=== PATIENT | male | born 1970 | race Caucasian/White ===

== ENCOUNTER 2017-07-24 12:47 | Emergency (ER) | payer OTHER, SELFPAY ==
[2017-07-24 12:50] VITALS: BP 112/75; PULSE 66; RESP 14; TEMP 36.9; O2SAT 95; BMI 43.3
--- NOTE | 2017-07-24 12:54 | ED.ABDPAIN ---
HPI - Abdominal Pain <JACQUI Stauffer - Last Filed: 07/24/17 22:09> General Chief Complaint: Abdominal Pain Stated Complaint: ABDOMINAL/BACK PAIN Time Seen by Provider: 07/24/17 13:00 History of Present Illness HPI narrative: 47 year old male hear for complaint of left lower quadrant abdominal pain for almost two weeks. He denies any trauma to the area. He denies any fevers or chills. Positive p.o. intake. He does report that he has had constipation on and off over the last couple of weeks. No urinary symptoms. Reports that the pain radiates to his back. He denies any stressors or really resolve the pain. He reports that the pain feels deeper than just on the surface. He denies any other complaint Related Data Home Medications Medication Instructions Recorded Confirmed No Known Home Medications 07/24/17 07/24/17 Allergies Allergy/AdvReac Type Severity Reaction Status Date / Time No Known Drug Allergies Allergy Verified 07/24/17 12:52 Review of Systems <JACQUI Stauffer - Last Filed: 07/24/17 22:09> Constitutional Denies chills, Denies fever(s), Denies lethargy and Denies weakness Eyes Denies change in vision, Denies eye discharge, Denies irritation and Denies loss of vision Cardiovascular Denies chest pain, Denies irregular heart rhythm, Denies lightheadedness, Denies palpitations and Denies orthopnea Gastrointestinal Gastrointestinal: Reports abdominal pain, Reports constipation, Denies diarrhea, Denies nausea and Denies vomiting Genitourinary Denies hematuria, Denies flank pain, Denies urinary incontinence and Denies urinary urgency Musculoskeletal Denies back pain, Denies muscle weakness, Denies numbness and Denies tingling Neurologic Denies loss of vision, Denies numbness, Denies tingling and Denies weakness Endocrine Denies palpitations Exam <JACQUI Stauffer - Last Filed: 07/24/17 22:09> Const General: cooperative and well developed Nutritional Appearance: well nourished Orientation: alert, awake, oriented x3 and not confused Eyes Sclera: sclerae normal Pupils: PERRL EOM: EOM intact bilaterally Resp Effort & Inspection: normal respiratory effort, able to speak in complete sentences, no respiratory distress and no use of accessory muscles Auscultation: clear to auscultation bilaterally, no rales, no rhonchi and no wheezes Cardio Rate: regular rate Rhythm: regular rhythm Heart Sounds: no click, no gallops, no murmurs and no rubs GI Inspection: non-distended Palpation: soft, no hepatosplenomegaly, No guarding, No hernia, No mass, No pulsatile mass and tender (Tenderness left lower quadrant) Auscultation: normal bowel sounds General: No CVA tenderness Back/Spine/Pelvis Back: No CVA tenderness Cervical Spine: cervical ROM normal and No pain with cervical ROM Thoracic/Lumbar Spine: thoracic and lumbar spine normal to inspection [facility] - Abdominal Pain <JACQUI Stauffer - Last Filed: 07/24/17 22:09> [facility] Narrative Medical decision making narrative: CBC Chem panel and lipase were obtained were unremarkable. Urine dip was negative for any signs of a red blood cells or urinary tract infection. CT of the abdomen was obtained and was negative for any acute findings. No emergent causes of his pain into his back and abdomen. Signs and symptoms presents as muscle pain. Use [id number] Tylenol or Motrin as needed for any discomfort. Follow up with primary care provider. Return emergency room for any worsening symptoms. Lab Data Result diagrams: 07/24/17 13:20 07/24/17 13:20 Lab Results 07/24/17 07/24/17 Range/Units 13:20 13:20 WBC 6.0 (4.5-11.0) X10^3/uL RBC 4.81 (4.5-5.9) X10^6/uL Hgb 16.0 (13.5-17.5) g/dL Hct 44.6 (41-53) % MCV 92.7 (80-100) fL MCH 33.3 (26-34) PG MCHC 35.9 (30-36) % RDW 13.2 (11.6-14.8) % Plt Count 164 (150-400) X10^3/uL Neut % (Auto) 60.6 (50-75) % Lymph % (Auto) 25.0 (25-40) % [place]oula % (Auto) 10.0 (3-14) % Eos % (Auto) 3.8 (2-4) % Baso % (Auto) 0.6 (0-2) % Neut # (Auto) 3600 (2998-3500) /uL Sodium 142 (137-145) mmol/L Potassium 4.2 (3.4-5.1) mmol/L Chloride 104.0 (98-107) mmol/L Carbon Dioxide 26.0 (22-32) mmol/L BUN 20.0 (9-20) mg/dL Creatinine 1.10 (0.66-1.25) mg/dL Estimated GFR > 60.0 (>60) mL/min BUN/Creatinine Ratio 18.2 (6-22) Glucose 97 (70-100) mg/dL Calcium 9.3 (8.4-10.2) mg/dL Total Bilirubin 0.7 (0.2-1.3) mg/dL AST 52 (17-59) IU/L ALT 86 H (21-72) IU/L Alkaline Phosphatase 77 (38-126) U/L Total Protein 7.3 (6.3-8.2) g/dL Albumin 4.3 (3.5-5.0) g/dL Globulin 3.0 (1.7-4.1) g/dL Albumin/Globulin Ratio 1.4 (1.0-2.8) Lipase 91 (23-300) U/L Imaging Data CT scan - abdomen: Radiologist's impression: PROCEDURE: CT ABDOMEN PELVIS W CON INDICATIONS: Left lower quadrant pain for last 2 weeks TECHNIQUE: After the administration of intravenous contrast, 5 mm thick sections acquired from the diaphragm to the symphysis. 5 mm coronal and sagittal reformats were acquired. For radiation dose reduction, the following was used: automated exposure control, adjustment of mA and/or kV according to patient size. COMPARISON: None. FINDINGS: Image quality: Excellent. ABDOMEN: Lung bases: Lung bases are clear. Heart size is normal. Solid organs: Liver is diffusely hypodense consistent with hepatic steatosis. Gallbladder is surgically absent. Biliary system is non dilated. Pancreas enhances normally. Spleen is normal in size and enhancement. No adrenal nodules. Kidneys demonstrate normal size and enhancement, without hydronephrosis. Peritoneum and bowel: Bowel loops demonstrate normal wall thickness and caliber. The appendix is thin walled and gas filled. No free fluid or air. Nodes and vessels: No retroperitoneal or mesenteric adenopathy by size criteria. Aorta and inferior vena cava are normal in size. Miscellaneous: No ventral hernias. PELVIS: Genitourinary: Bladder wall thickness is normal. Miscellaneous: No inguinal hernias or adenopathy. Bones: No suspicious bony lesions. No vertebral body compression fractures. There are bilateral L5-S1 pars interarticularis defects and grade I anterolisthesis. IMPRESSION: 1. No acute intra-abdominal findings. Normal appendix. No findings to explain left lower quadrant pain. 2. L5-S1 spondylolysis and spondylolisthesis. Dictated by: Shirley Rosenberg M.D. on 07/24/2017 at 14:31 Approved by: Shirley Rosenberg M.D. on 07/24/2017 at 14:34 <Osmin Solitario DO - Last Filed: 07/25/17 08:32> Lab Data Lab Results 07/24/17 07/24/17 Range/Units 13:20 13:20 WBC 6.0 (4.5-11.0) X10^3/uL RBC 4.81 (4.5-5.9) X10^6/uL Hgb 16.0 (13.5-17.5) g/dL Hct 44.6 (41-53) % MCV 92.7 (80-100) fL MCH 33.3 (26-34) PG MCHC 35.9 (30-36) % RDW 13.2 (11.6-14.8) % Plt Count 164 (150-400) X10^3/uL Neut % (Auto) 60.6 (50-75) % Lymph % (Auto) 25.0 (25-40) % [place]oula % (Auto) 10.0 (3-14) % Eos % (Auto) 3.8 (2-4) % Baso % (Auto) 0.6 (0-2) % Neut # (Auto) 3600 (0791-1957) /uL Sodium 142 (137-145) mmol/L Potassium 4.2 (3.4-5.1) mmol/L Chloride 104.0 (98-107) mmol/L Carbon Dioxide 26.0 (22-32) mmol/L BUN 20.0 (9-20) mg/dL Creatinine 1.10 (0.66-1.25) mg/dL Estimated GFR > 60.0 (>60) mL/min BUN/Creatinine Ratio 18.2 (6-22) Glucose 97 (70-100) mg/dL Calcium 9.3 (8.4-10.2) mg/dL Total Bilirubin 0.7 (0.2-1.3) mg/dL AST 52 (17-59) IU/L ALT 86 H (21-72) IU/L Alkaline Phosphatase 77 (38-126) U/L Total Protein 7.3 (6.3-8.2) g/dL Albumin 4.3 (3.5-5.0) g/dL Globulin 3.0 (1.7-4.1) g/dL Albumin/Globulin Ratio 1.4 (1.0-2.8) Lipase 91 (23-300) U/L Course <JACQUI Stauffer - Last Filed: 07/24/17 22:09> Orders Ordered: Discontinued Medications Sodium Chloride (Normal Saline 0.9%) 1,000 mls @ 150 mls/hr IV CONT RAAD Last Infusion: 07/24/17 14:48 Dose: 0 mls/hr Admin: 07/24/17 13:32 Dose: 150 mls/hr Last Vital Signs Temp 98.5 F 07/24/17 12:50 Pulse 61 07/24/17 14:50 Resp 18 07/24/17 14:50 BP 107/65 07/24/17 14:50 Pulse Ox 96 07/24/17 14:50 <Osmin Solitario DO - Last Filed: 07/25/17 08:32> Orders Ordered: Discontinued Medications Sodium Chloride (Normal Saline 0.9%) 1,000 mls @ 150 mls/hr IV CONT RAAD Last Infusion: 07/24/17 14:48 Dose: 0 mls/hr Admin: 07/24/17 13:32 Dose: 150 mls/hr Last Vital Signs Temp 98.5 F 07/24/17 12:50 Pulse 61 07/24/17 14:50 Resp 18 07/24/17 14:50 BP 107/65 07/24/17 14:50 Pulse Ox 96 07/24/17 14:50 Discharge Plan Departure Patient Disposition: Home, Self-Care Clinical Impression: Abdominal wall pain Discharge Date/Time: 07/24/17 14:57 Interventions: ED Discharge Assessment Last Done: 07/24/17 14:56 Instructions: DI for Abdominal Muscle Strain Activity Restrictions/Additional Instructions: Laboratory results and CT were unremarkable. Signs and symptoms presents as muscle strain. Use [id number] Tylenol and Motrin as needed for any discomfort. For continued symptoms follow up with her primary care provider. For any worsening symptoms return to the emergency room. There is no evidence of an emergent or life threatening illness at this time, however follow up with your doctor in 1-2 days is recommended nonetheless to continue to rule out serious underlying causes of your symptoms. Please call the office to schedule an appointment. Please return to the Emergency Department for any worsening or persistent symptoms. Please take medications as directed. Prescriptions: No Action No Known Home Medications RF: 0 Referrals: Ge Salas MD [Primary Care Provider] - <Osmin Solitario DO - Last Filed: 07/25/17 08:32> Cosign ED Attending Jasmyneature Attestation: I was immediately available in the department for consultation. Documentation has been reviewed. I agree with assessment and plan.
--- NOTE | 2017-07-24 13:06 | DI.CT.S_ITS ---
PROCEDURE: CT ABDOMEN PELVIS W CON INDICATIONS: Left lower quadrant pain for last 2 weeks TECHNIQUE: After the administration of intravenous contrast, 5 mm thick sections acquired from the diaphragm to the symphysis. 5 mm coronal and sagittal reformats were acquired. For radiation dose reduction, the following was used: automated exposure control, adjustment of mA and/or kV according to patient size. COMPARISON: None. FINDINGS: Image quality: Excellent. ABDOMEN: Lung bases: Lung bases are clear. Heart size is normal. Solid organs: Liver is diffusely hypodense consistent with hepatic steatosis. Gallbladder is surgically absent. Biliary system is non dilated. Pancreas enhances normally. Spleen is normal in size and enhancement. No adrenal nodules. Kidneys demonstrate normal size and enhancement, without hydronephrosis. Peritoneum and bowel: Bowel loops demonstrate normal wall thickness and caliber. The appendix is thin walled and gas filled. No free fluid or air. Nodes and vessels: No retroperitoneal or mesenteric adenopathy by size criteria. Aorta and inferior vena cava are normal in size. Miscellaneous: No ventral hernias. PELVIS: Genitourinary: Bladder wall thickness is normal. Miscellaneous: No inguinal hernias or adenopathy. Bones: No suspicious bony lesions. No vertebral body compression fractures. There are bilateral L5-S1 pars interarticularis defects and grade I anterolisthesis. IMPRESSION: 1. No acute intra-abdominal findings. Normal appendix. No findings to explain left lower quadrant pain. 2. L5-S1 spondylolysis and spondylolisthesis. Dictated by: Shirley Rosenberg M.D. on 07/24/2017 at 14:31 Approved by: Shirley Rosenberg M.D. on 07/24/2017 at 14:34
[2017-07-24 13:30] LABS: Add Manual Diff / Slide Review NO; Basophils Percent Auto 0.6 % (0-2); Eosinophils Percent Auto 3.8 % (2-4); Hematocrit 44.6 % (41-53); Mean Corpuscular HGB Conc 35.9 % (30-36); Mean Corpuscular Hemoglobin 33.3 PG (26-34); Mean Corpuscular Volume 92.7 fL (80-100); Neutrophils Absolute Auto 3600 /uL (3000-5900); Neutrophils Percent Auto 60.6 % (50-75); Platelet Count 164 X10^3/uL (150-400); Red Blood Cell Count 4.81 X10^6/uL (4.5-5.9); Red Cell Distribution Width 13.2 % (11.6-14.8)
[2017-07-24] MEDS: SODIUM CHLORIDE 0.9% 1,000 ML 150 ML IV (13:32)
[2017-07-24 13:39] LABS: Alanine Aminotransferase 86 IU/L (21-72); Albumin 4.3 g/dL (3.5-5.0); Albumin Globulin Ratio 1.4 (1.0-2.8); Alkaline Phosphatase 77 U/L (38-126); Aspartate Aminotransferase 52 IU/L (17-59); BUN Creatinine Ratio 18.2 (6-22); Bilirubin Total 0.7 mg/dL (0.2-1.3); Calcium 9.3 mg/dL (8.4-10.2); Estimated Glomerular Filt Rate > 60.0 mL/min (>60); Glucose 97 mg/dL (70-100); HEMOLYSIS < 15 (0-50); Lipase 91 U/L (23-300); Potassium 4.2 mmol/L (3.4-5.1); Sodium 142 mmol/L (137-145); Total Protein 7.3 g/dL (6.3-8.2)
[2017-07-24 14:50] VITALS: BP 107/65; PULSE 61; RESP 18; O2SAT 96
== END 2017-07-24 14:57 | disposition home or self-care (01) ==
PROVIDERS: Emergency Provider Nurse Practitioner Family; Family Provider Family Medicine; PCP Family Medicine
DX: R10.9 Unspecified abdominal pain (principal)
CPT/HCPCS: 36591; 74177; 80053; 83690; 85025; 96360; 99283; 99284; Q9967

== ENCOUNTER → 2018-07-14 07:43 | Outpatient (CLI) | payer OTHER, SELFPAY ==
[2018-07-14 09:08] LABS: Add Manual Diff / Slide Review NO; Basophils Absolute Auto 0 /uL (0-100); Basophils Percent Auto 0.5 % (0-2); Eosinophils Absolute Auto 200 /uL (0-450); Eosinophils Percent Auto 3.4 % (2-4); Hematocrit 45.2 % (41-53); Hemoglobin 15.9 g/dL (13.5-17.5); Lymphocytes Absolute Auto 1800 /uL (1100-4500); Lymphocytes Percent Auto 27.6 % (25-40); Mean Corpuscular HGB Conc 35.1 % (30-36); Mean Corpuscular Volume 94.1 fL (80-100); Monocytes Absolute Auto 600 /uL (0-900); Monocytes Percent Auto 9.6 % (3-14); Neutrophils Absolute Auto 3900 /uL (1500-7000); Neutrophils Percent Auto 58.9 % (50-75); Platelet Count 186 X10^3/uL (150-400); Red Cell Distribution Width 13.3 % (11.6-14.8); White Blood Cell Count 6.6 X10^3/uL (4.5-11.0)
[2018-07-14 09:09] LABS: Prothrombin Time 11.8 SECONDS (10.1-12.7)
[2018-07-14 09:23] LABS: Alanine Aminotransferase 56 IU/L (21-72); Albumin 4.3 g/dL (3.5-5.0); Albumin Globulin Ratio 1.4 (1.0-2.8); Alkaline Phosphatase 80 U/L (38-126); Aspartate Aminotransferase 33 IU/L (17-59); BUN Creatinine Ratio 18.9 (6-22); Bilirubin Total 0.6 mg/dL (0.2-1.3); Blood Urea Nitrogen 17 mg/dL (9-20); C-Reactive Protein Quant 0.5 mg/dL (<1.0); Calcium 8.9 mg/dL (8.4-10.2); Carbon Dioxide 30 mmol/L (22-32); Chloride 103 mmol/L (98-107); Cholesterol 115 mg/dL (140-199); Estimated Glomerular Filt Rate > 60.0 mL/min (>60); Glucose 92 mg/dL (70-100); HDL Cholesterol 37 mg/dL (40-60); HEMOLYSIS < 15 (0-50); LDL Cholesterol Calculated 52 mg/dL (<100); Potassium 4.1 mmol/L (3.4-5.1); Sodium 141 mmol/L (137-145); Total Protein 7.3 g/dL (6.3-8.2); Triglycerides 130 mg/dL (35-150); Uric Acid 8.6 mg/dL (3.5-8.5)
[2018-07-14 09:29] LABS: Erythrocyte Sedimentation Rate 4 MM/HR (0-15)
[2018-07-14 10:17] LABS: TSH w/ Reflex to FT4 2.64 uIU/mL (0.47-4.68)
== END ==
PROVIDERS: Visit Provider Internal Medicine
DX: G47.33 Obstructive sleep apnea (adult) (pediatric) (principal); M10.9 Gout, unspecified; E66.01 Morbid (severe) obesity due to excess calories
CPT/HCPCS: 36415; 80053; 80061; 84443; 84550; 85025; 85610; 85651; 86140

== ENCOUNTER → 2019-01-31 15:32 | Outpatient (CLI) | payer OTHER, SELFPAY ==
[2019-01-31 16:22] LABS: Add Manual Diff / Slide Review NO; Basophils Absolute Auto 0 /uL (0-100); Basophils Percent Auto 0.6 % (0-2); Eosinophils Absolute Auto 200 /uL (0-450); Eosinophils Percent Auto 2.2 % (2-4); Hematocrit 46.3 % (41-53); Hemoglobin 16.6 g/dL (13.5-17.5); Lymphocytes Absolute Auto 2000 /uL (1100-4500); Mean Corpuscular HGB Conc 35.9 % (30-36); Mean Corpuscular Hemoglobin 33.2 PG (26-34); Mean Corpuscular Volume 92.6 fL (80-100); Monocytes Absolute Auto 800 /uL (0-900); Monocytes Percent Auto 12.2 % (3-14); Neutrophils Absolute Auto 3800 /uL (1500-7000); Platelet Count 199 X10^3/uL (150-400); White Blood Cell Count 6.9 X10^3/uL (4.5-11.0)
[2019-01-31 16:49] LABS: Alanine Aminotransferase 47 IU/L (<50); Albumin 4.8 g/dL (3.5-5.0); Albumin Globulin Ratio 1.8 (1.0-2.8); Alkaline Phosphatase 94 U/L (38-126); Aspartate Aminotransferase 36 IU/L (17-59); Bilirubin Total 0.8 mg/dL (0.2-1.3); Blood Urea Nitrogen 19 mg/dL (9-20); Calcium 10.3 mg/dL (8.4-10.2); Carbon Dioxide 31 mmol/L (22-32); Chloride 100 mmol/L (98-107); Estimated Glomerular Filt Rate > 60.0 mL/min (>60); Globulin 2.7 g/dL (1.7-4.1); Glucose 102 mg/dL (70-100); HEMOLYSIS < 15 (0-50); Potassium 4.9 mmol/L (3.4-5.1); Sodium 141 mmol/L (137-145); Total Protein 7.5 g/dL (6.3-8.2)
[2019-01-31 17:20] LABS: Prostate Specific Antigen Scrn 0.264 ng/mL (0.1-4.0)
== END ==
PROVIDERS: PCP Family Medicine; Visit Provider Internal Medicine
DX: Z13.1 Encounter for screening for diabetes mellitus (principal); Z13.6 Encounter for screening for cardiovascular disorders; Z12.5 Encounter for screening for malignant neoplasm of prostate; E66.01 Morbid (severe) obesity due to excess calories; G47.33 Obstructive sleep apnea (adult) (pediatric); M10.9 Gout, unspecified
CPT/HCPCS: 36415; 80053; 85025; G0103

== ENCOUNTER → 2019-11-12 17:02 | Outpatient (CLI) | payer OTHER, SELFPAY ==
[2019-11-12 17:27] LABS: Add Manual Diff / Slide Review NO; Basophils Absolute Auto 0 /uL (0-100); Basophils Percent Auto 0.7 % (0-2); Eosinophils Absolute Auto 200 /uL (0-450); Eosinophils Percent Auto 2.7 % (2-4); Hemoglobin 14.5 g/dL (13.5-17.5); Lymphocytes Absolute Auto 2000 /uL (1100-4500); Lymphocytes Percent Auto 32.7 % (25-40); Mean Corpuscular HGB Conc 34.6 % (30-36); Mean Corpuscular Hemoglobin 32.5 PG (26-34); Mean Corpuscular Volume 93.9 fL (80-100); Monocytes Absolute Auto 700 /uL (0-900); Monocytes Percent Auto 11.8 % (3-14); Neutrophils Absolute Auto 3200 /uL (1500-7000); Neutrophils Percent Auto 52.1 % (50-75); Platelet Count 178 X10^3/uL (150-400); Red Blood Cell Count 4.47 X10^6/uL (4.5-5.9); Red Cell Distribution Width 13.2 % (11.6-14.8)
[2019-11-12 17:47] LABS: Alanine Aminotransferase 31 IU/L (<50); Albumin 4.3 g/dL (3.5-5.0); Albumin Globulin Ratio 1.4 (1.0-2.8); Alkaline Phosphatase 76 U/L (38-126); Aspartate Aminotransferase 29 IU/L (17-59); BUN Creatinine Ratio 19.5 (6-22); Blood Urea Nitrogen 17 mg/dL (9-20); Calcium 8.8 mg/dL (8.4-10.2); Carbon Dioxide 27 mmol/L (22-32); Chloride 103 mmol/L (98-107); Estimated Glomerular Filt Rate > 60.0 mL/min (>60); Glucose 91 mg/dL (70-100); HEMOLYSIS < 15 (0-50); Potassium 4.1 mmol/L (3.4-5.1); Sodium 137 mmol/L (137-145); Total Protein 7.3 g/dL (6.3-8.2)
== END ==
PROVIDERS: PCP Internal Medicine; Referring Provider Physician Assistant; Visit Provider Physician Assistant
DX: R31.9 Hematuria, unspecified (principal)
CPT/HCPCS: 36415; 80053; 85025; 87086; G0103

== ENCOUNTER → 2019-11-14 15:14 | Outpatient (CLI) | payer OTHER, SELFPAY ==
--- NOTE | 2019-11-14 15:15 | DI.CT.S_ITS ---
PROCEDURE: CT KIDNEY URETER BLADDER (KUB) INDICATIONS: LLQ pain with blood in urine TECHNIQUE: Noncontrast 5 mm thick sections acquired from the diaphragms to the symphysis. 5 mm thick coronal and sagittal reformats were then performed. For radiation dose reduction, the following was used: automated exposure control, adjustment of mA and/or kV according to patient size. COMPARISON: [facility], CT, CT ABDOMEN PELVIS W CON, 07/24/2017, 14:04. FINDINGS: Image quality: Excellent. Lung bases: Lung bases are clear. Heart size is normal. Urinary system: Both kidneys are normal in size. There is a left-sided single renal pelvis stone measuring 5 x 7 mm, associated with slight hydronephrosis on the left. More inferiorly through the retroperitoneum no additional calculus or bladder calculus is found.. No hydronephrosis or perinephric fat stranding. Both ureters appear non-dilated throughout their expected courses. Bladder wall thickness is normal; no calcified bladder stones. Other solid organs: Liver is normal in size. Gallbladder appears previously resected. Pancreas is normal in contours. Spleen is normal in size. No adrenal nodules. Peritoneum and bowel: Unenhanced bowel loops demonstrate normal wall thickness and caliber. No free fluid or air. Nodes and vessels: No retroperitoneal or mesenteric adenopathy by size criteria. Aorta and inferior vena cava are normal in caliber. Abdominal wall: No ventral hernias. Pelvis: No free pelvic fluid. No inguinal hernias or adenopathy. Bones: No suspicious bony lesions. No vertebral body compression fractures. IMPRESSION: 5 x 7 mm left renal pelvis calculus, with mild left-sided hydronephrosis, and no additional urinary tract stone is found. Note is made of prior cholecystectomy. No suspicion of coincidental inflammation involving the bowel within the pelvis. Dictated by: Yahir Arroyo M.D. on 11/14/2019 at 16:16 Approved by: Yahir Arroyo M.D. on 11/14/2019 at 16:20
== END ==
PROVIDERS: PCP Internal Medicine; Referring Provider Physician Assistant; Visit Provider Physician Assistant
DX: R31.9 Hematuria, unspecified (principal); R10.32 Left lower quadrant pain; N13.2 Hydronephrosis with renal and ureteral calculous obstruction
CPT/HCPCS: 74176

== ENCOUNTER 2020-03-04 02:30 | Emergency (ER) | payer OTHER, SELFPAY ==
[2020-03-04 02:37] VITALS: BP 145/89; PULSE 68; RESP 16; TEMP 36.1; O2SAT 97; BMI 44.4
--- NOTE | 2020-03-04 02:42 | ED_ITS ---
HPI - Extremity Problem General Chief complaint: Extremity Injury, Lower Stated complaint: gout attack Time Seen by Provider: 03/04/20 02:32 Source: patient Mode of arrival: Ambulatory Limitations: no limitations History of Present Illness HPI Narrative: 42-year-old male nonsmoker with extensive history of complicated gout presents with a chief complaint of pain and swelling was left knee over the past few days. He states this feels quite similar to prior episodes of gout. He states the pain is worse with motion and improves with rest. He denies any recent injury. He has had no fever or chills. He routinely takes allopurinol and indomethacin. He denies missing any doses. He does state that he eats a fair amount of red meat but denies any significant alcohol or other potential triggers. MD Complaint: extremity pain Onset (ago): day(s) Pain Consistency: constant Location: left Quality: aching Relieving factors: rest Exacerbating factors: walking Associated symptoms: denies other symptoms Related Data Home Medications Medication Instructions Recorded Confirmed [employer] Dreamstation CPAP #1 ea 07/10/18 11/12/19 Previous Rx's Medication Instructions Recorded allopurinol 300 mg tablet 300 mg PO QDAY #90 tab 07/17/12 tamsulosin 0.4 mg capsule 0.4 mg PO DAILY #20 cap 11/14/19 oxycodone-acetaminophen 5 mg-325 See Rx Instructions PO Q4-6H PRN 11/15/19 mg tablet #15 tab colchicine 0.6 mg tablet 0.6 mg PO BID #3 tab 02/20/20 indomethacin 50 mg capsule 50 mg PO BID #14 cap 02/20/20 colchicine See Rx Instructions .ROUTE 03/04/20 .COMPLEX #10 tab Allergies Allergy/AdvReac Type Severity Reaction Status Date / Time No Known Drug Allergies Allergy Verified 11/12/19 17:25 Review of Systems Constitutional Constitutional: Denies chills, Denies fatigue, Denies fever(s), Denies frequent falls, Denies lethargy and Denies weakness Eyes Eyes: Denies change in vision, Denies eye discharge, Denies irritation and Denies loss of vision ENT Ears, Nose, Mouth, and Throat: Denies change in voice, Denies dizziness, Denies neck pain, Denies sore throat and Denies throat swelling Cardiovascular Cardiovascular: Denies chest pain, Denies irregular heart rhythm, Denies lightheadedness, Denies palpitations, Denies dyspnea, Denies dyspnea on exertion and Denies orthopnea Respiratory Respiratory: Denies cough, Denies dyspnea, Denies dyspnea on exertion and Denies wheezing Gastrointestinal Gastrointestinal: Denies abdominal pain, Denies change in bowel habits, Denies diarrhea, Denies nausea and Denies vomiting Musculoskeletal Musculoskeletal: Reports arthralgias, Reports joint swelling, Denies neck pain and Denies numbness Integumentary/Breasts Skin/Breast: Denies pruritus, Denies erythema, Denies rash and Denies wounds Neurologic Neurologic: Denies behavioral changes, Denies confusion, Denies dizziness, Denies frequent falls, Denies loss of vision, Denies numbness and Denies weakness Psychiatric Psychiatric: Denies anxiety, Denies behavioral changes, Denies confusion, Denies depression, Denies homicidal ideation and Denies suicidal ideation Endocrine Endocrine: Denies fatigue, Denies flushing and Denies palpitations Hematologic/Lymphatic Hematologic/Lymphatic: Denies easy bruising Allergic/Immunologic Allergic/Immunologic: Denies urticaria, Denies throat swelling and Denies wheezing Patient History Medical History Dry skin (~2014) Excessive daytime sleepiness (~2014) Gout (~2011) H/O adenomatous polyp of colon History of treatment for tuberculosis Insomnia (~2009) Kidney stone Morbid obesity with body mass index of 40.0-49.9 (Unknown) Obstructive sleep apnea of adult (~2014) PPD positive Seasonal allergies Shingles Snoring (~2009) Surgical History Anesthesia Carpal tunnel syndrome on both sides History of vasectomy Kidney stones (~2011) S/P cholecystectomy (~2004) S/P vasectomy (~2004) Status post cholecystectomy Status post colonoscopy (10/13/09) Social History marital status: details: axel Liu, lives in [place] household members: spouse lives independently: Yes caregiver/support person: No housing: house occupational status: employed current occupational exposures/hazards: Yes ([employer]) Smoking Status: Never smoker alcohol intake: never substance use type: does not use Smoking Status: Never smoker alcohol intake frequency: 0-2 drinks per day Substance Use Type: does not use Exam Narrative Exam Narrative: GEN: AOx3 and in mild distress EYES: Pupils are equal, round, and reactive to light and accommodation. Extraoccular muscles are intact bilaterally. There is no subconjunctival hemorrhage or exudate. CHEST: Lungs are clear to auscultation bilaterally and free of wheezes, rales, or rhonchi. Heart rate is regular rhythm, there are no murmurs, clicks, rubs, or gallops. There is no chest wall tenderness. ABD: Abdomen is soft and nontender. There is no guarding or rebound. Bowel sounds are normal in all 4 quadrants. There is no mass or organomegaly. EXT: Decreased range of motion secondary to pain in left knee, moderate effusion, no redness or warmth. SKIN: Warm, pink, and dry. No erythema or rash Initial Vital Signs Initial Vital Signs: Vital Signs Temperature 97.0 F L 03/04/20 02:37 Pulse Rate 68 03/04/20 02:37 Respiratory Rate 16 03/04/20 02:37 Blood Pressure 145/89 H 03/04/20 02:37 Pulse Oximetry 97 03/04/20 02:37 Course Orders Ordered: Discontinued Medications Colchicine (Colchicine 0.6 Mg Tablet) 1.2 mg PO NOW ONE Stop: 03/04/20 02:40 Last Admin: 03/04/20 02:56 Dose: 1.2 mg Documented by: YOLANDA Vital Signs Vital signs: Vital Signs - 8 hr 03/04/20 02:37 Temperature 97.0 F L Pulse Rate 68 Respiratory Rate 16 Blood Pressure 145/89 H Pulse Oximetry 97 Discharge Plan Departure Patient Disposition: Home Clinical Impression: Gout Instructions: DI for Gout Activity Restrictions/Additional Instructions: *You have been diagnosed with [acute gout flare] *What to do: * continue taking other medications as directed *Follow up with your primary care provider in 2-3 days, call for an appointment. Let them know you were seen in the Emergency Department and that we ask that you be seen in follow up *Return to ER if you should have any new, worsening or concerning symptoms Prescriptions: New colchicine 0.6 mg tablet See Rx Instructions .ROUTE .COMPLEX Qty: 10 RF: 0 No Action allopurinol 300 mg tablet 300 mg PO QDAY Qty: 90 RF: 3 tamsulosin [Flomax] 0.4 mg capsule 0.4 mg PO DAILY Qty: 20 RF: 0 oxycodone-acetaminophen 5-325 mg tablet See Rx Instructions PO Q4-6H PRN (Reason: pain) Qty: 15 RF: 0 colchicine 0.6 mg tablet 0.6 mg PO BID Qty: 3 RF: 0 indomethacin 50 mg capsule 50 mg PO BID Qty: 14 RF: 0 (DME) [employer] Dream[employer] CPAP Qty: 1 RF: 0 Referrals: [facility] [Outside] Fam Zaidi MD [Physician] - Mirza Dominguez MD [Primary Care Provider] -
[2020-03-04] MEDS: COLCHICINE 0.6 MG TABLET 1.2 MG PO (02:56)
== END 2020-03-04 03:08 | disposition home or self-care (01) ==
PROVIDERS: Emergency Provider Emergency Medicine; PCP Internal Medicine
DX: M10.9 Gout, unspecified (principal); N20.0 Calculus of kidney
CPT/HCPCS: 74018; 99281; 99283

== ENCOUNTER → 2020-03-04 16:20 | Outpatient (CLI) | payer OTHER, SELFPAY ==
--- NOTE | 2020-03-04 16:21 | DI.RAD.S_ITS ---
PROCEDURE: XR KUB INDICATIONS: Kidney stone TECHNIQUE: One view of the abdomen acquired. COMPARISON: [facility], CT, CT ABDOMEN PELVIS W CON, 07/24/2017, 14:04. [facility], CT, CT KIDNEY URETER BLADDER (KUB), 11/14/2019, 15:16. FINDINGS: Surgical changes and devices: None. Bowel: Bowel gas pattern is normal. Soft tissues: No new suspicious abdominal calcification is found, and the ovoid calculus at the central renal pelvis at the renal hilum is again noted, not significantly further enlarged, measuring approximately 7 mm in dimension with some radiographic magnification. No right-sided urinary tract stone is seen.. Visualized solid organ contours appear normal in size. Bones: No suspicious bony lesions. IMPRESSION: Stable appearing 7-8 mm calculus within the collecting renal pelvis area of the left kidney faintly visualized. A ureteral stone is not seen. Dictated by: Yahir Arroyo M.D. on 03/04/2020 at 17:03 Approved by: Yahir Arroyo M.D. on 03/04/2020 at 17:05
== END ==
PROVIDERS: PCP Internal Medicine; Referring Provider Specialist; Visit Provider Specialist
DX: N20.0 Calculus of kidney (principal)
CPT/HCPCS: 74018

== ENCOUNTER → 2020-03-10 11:36 | Outpatient (CLI) | payer OTHER, SELFPAY ==
[2020-03-10 13:15] LABS: BUN Creatinine Ratio 21.6 (6-22); Blood Urea Nitrogen 19 mg/dL (9-20); Calcium 9.9 mg/dL (8.4-10.2); Carbon Dioxide 31 mmol/L (22-32); Chloride 104 mmol/L (98-107); Estimated Glomerular Filt Rate > 60.0 mL/min (>60); Glucose 96 mg/dL (70-100); HEMOLYSIS < 15 (0-50); Potassium 4.6 mmol/L (3.4-5.1); Sodium 141 mmol/L (137-145); Uric Acid 6.3 mg/dL (3.5-8.5)
== END ==
PROVIDERS: PCP Internal Medicine; Referring Provider Internal Medicine; Visit Provider Internal Medicine
DX: Z87.39 Personal history of other diseases of the musculoskeletal system and connective tissue (principal)
CPT/HCPCS: 36415; 80048; 84550

== ENCOUNTER → 2020-03-19 16:17 | Outpatient (CLI) | payer OTHER, SELFPAY ==
[2020-03-19 17:36] LABS: COVID19 -Nasal RAPID Negative (Negative)
== END ==
PROVIDERS: PCP Internal Medicine; Visit Provider Specialist
DX: Z01.812 Encounter for preprocedural laboratory examination (principal); Z20.822 Contact with and (suspected) exposure to COVID-19
CPT/HCPCS: 87635; C9803

== ENCOUNTER 2020-03-21 06:32 | Day surgery (SDC) | payer OTHER, SELFPAY ==
[2020-03-19 11:52] VITALS: BMI 43.2
--- NOTE | 2020-03-21 | DI.RAD.S_ITS ---
PROCEDURE: XR KUB INDICATIONS: pre op TECHNIQUE: One view of the abdomen acquired. COMPARISON: [facility], CT, CT KIDNEY URETER BLADDER (KUB), 11/14/2019, 15:16. [facility], CR, XR KUB, 03/04/2020, 16:25. FINDINGS: Surgical changes and devices: Right upper quadrant surgical clips. Bowel: Bowel gas pattern is normal. Soft tissues: Previously seen 7-8 mm calcification projecting the region of left renal pelvis appears grossly unchanged although not well seen due to overlying bowel Bones: No suspicious bony lesions. IMPRESSION: Grossly unchanged appearance of calculus projecting in the left renal pelvis Dictated by: Ross Rodriguez M.D. on 03/21/2020 at 9:05 Approved by: Ross Rodriguez M.D. on 03/21/2020 at 9:07
[2020-03-21 07:07] VITALS: BP 114/72; PULSE 57; RESP 16; TEMP 35.8; O2SAT 96; BMI 43.2
--- NOTE | 2020-03-21 07:23 | PM.PREOP ---
Pre-operative Note Interval Note History & Physical reviewed/Exam performed by Physician: Yes Changes to H&P: No
[2020-03-21] MEDS: LACTATED RINGERS 1,000 ML 42 ML IV (07:25)
--- NOTE | 2020-03-21 08:13 | SUR.OPER ---
Supine on lithotripsy table, head on pillow, arms at patients side on gel pads, towel rolled and placed under patients wrist and hand bilaterally, legs uncrossed, large gel pad under ankles/heels.
--- NOTE | 2020-03-21 08:53 | P.OP_ITS ---
Operative Date/Time/Diagnoses Date of procedure: 03/21/20 Time of procedure: 08:53 Pre-op diagnosis: Obstructing 7 x 8 mm left ureteropelvic junction calculus Post-op diagnosis: same Procedure & Clinicians Procedure: Left extracorporeal shockwave lithotripsy (2042 shocks at power level 8.0) Same procedure as scheduled: Yes Indications: Obstructing 7 x 8 mm left ureteropelvic junction calculus Surgeon: Fam Zaidi Click Yes if Unassisted: Yes Anesthesia Type: General Operative Notes Findings: Patient was positioned supine was administered general anesthesia. The above-described index stone was then localized in the X, Y, and Z plane. Lithotripsy was then commenced at minimal power level for 200 shocks. A 2 minutes pause was then conducted. Lithotripsy was then resumed and the power level was gradually increased to maximum of 8.0. The calculus and its fragments were periodically really localized throughout the case. At 2042 shocks there was excellent radiographic evidence of stone comminution. The patient was then awakened, transferred to [facility], and transferred to recovery in stable condition. Closure Type: not applicable Specimen(s): none sent Estimated Blood Loss (mL): 0 Blood products transfused: none Tourniquet time (min): 0 Procedure in detail: See dictation under findings Complications: none Post-operative Condition: stable Disposition: PACU Plan for aftercare: Discharge home
[2020-03-21 08:54] VITALS: BP 106/67; PULSE 58; RESP 11; TEMP 36.5; O2SAT 94
[2020-03-21 09:00] VITALS: BP 120/69; PULSE 55; RESP 11; O2SAT 97
[2020-03-21 09:05] VITALS: BP 106/67; PULSE 50; RESP 11; O2SAT 97
[2020-03-21] MEDS: FUROSEMIDE 20 MG/2 ML VIAL IV (09:13)
[2020-03-21 09:26] VITALS: BP 94/56; PULSE 55; RESP 13; O2SAT 95
[2020-03-21 09:55] VITALS: BP 111/67; PULSE 50; RESP 16; TEMP 36.2; O2SAT 95
--- NOTE | 2020-03-21 10:01 | SUR.PHASEII ---
Pt met criteria for discharge: VSS, Denied pain or nausea, up to toilet to void x 2 (stone fragments strained/collected and sent to lab). Discharge instructions discussed, all questions answered. Transported via W/C to private vehicle.
[2020-03-31 13:46] LABS: Size 2x2; Stone Analysis Source NOT PROVIDED
[2020-03-31 13:47] LABS: Ca oxalate monohydr 20
[2020-03-31 13:48] LABS: Ca oxalate dihydrate 80
== END 2020-03-21 09:59 | disposition home or self-care (01) ==
PROVIDERS: PCP Internal Medicine; Referring Provider Internal Medicine; Visit Provider Specialist
PROC: (CPT 50590; principal; 2020-03-21 07:45)
DX: N20.1 Calculus of ureter (principal); R31.9 Hematuria, unspecified; G47.33 Obstructive sleep apnea (adult) (pediatric); E66.01 Morbid (severe) obesity due to excess calories; M10.9 Gout, unspecified; Z68.41 Body mass index [BMI] 40.0-44.9, adult; Z80.42 Family history of malignant neoplasm of prostate
CPT/HCPCS: 50590; 74018; 82365; J1100; J1940; J2250; J2405; J2704; J3010

== ENCOUNTER 2020-03-22 11:09 | Observation (INO) | payer OTHER, SELFPAY ==
[2020-03-22] VITALS (22 sets, daily range): BP systolic 92–194; BP diastolic 52–90; PULSE 49–76; RESP 7–24; TEMP 36.2–36.8; O2SAT 93–100; BMI 43.2
[2020-03-22] MEDS: HYDROMORPHONE 1 MG INJ IV ×2 (11:24→12:01)
[2020-03-22] MEDS: SODIUM CHLORIDE 0.9% 500 ML 1000 ML IV (11:24)
[2020-03-22] MEDS: ONDANSETRON 4 MG/2 ML INJ IV (11:25)
[2020-03-22 11:41] LABS: Add Manual Diff / Slide Review NO; Basophils Absolute Auto 0 /uL (0-100); Basophils Percent Auto 0.2 % (0-2); Eosinophils Absolute Auto 0 /uL (0-450); Eosinophils Percent Auto 0.1 % (2-4); Hematocrit 45.3 % (41-53); Hemoglobin 15.9 g/dL (13.5-17.5); Lymphocytes Absolute Auto 1800 /uL (1100-4500); Lymphocytes Percent Auto 10.6 % (25-40); Mean Corpuscular HGB Conc 35.1 % (30-36); Mean Corpuscular Hemoglobin 32.7 PG (26-34); Mean Corpuscular Volume 93.1 fL (80-100); Monocytes Absolute Auto 1400 /uL (0-900); Monocytes Percent Auto 8.3 % (3-14); Neutrophils Absolute Auto 13700 /uL (1500-7000); Neutrophils Percent Auto 80.8 % (50-75); Platelet Count 207 X10^3/uL (150-400); Red Blood Cell Count 4.86 X10^6/uL (4.5-5.9); Red Cell Distribution Width 12.8 % (11.6-14.8)
[2020-03-22 11:48] LABS: Alanine Aminotransferase 59 IU/L (<50); Albumin 4.5 g/dL (3.5-5.0); Albumin Globulin Ratio 1.4 (1.0-2.8); Alkaline Phosphatase 79 U/L (38-126); Amylase 46 U/L (30-110); Aspartate Aminotransferase 35 IU/L (17-59); BUN Creatinine Ratio 12.2 (6-22); Bilirubin Total 0.4 mg/dL (0.2-1.3); Blood Urea Nitrogen 22 mg/dL (9-20); Calcium 9.6 mg/dL (8.4-10.2); Carbon Dioxide 29 mmol/L (22-32); Chloride 103 mmol/L (98-107); Estimated Glomerular Filt Rate 40.2 mL/min (>60); Globulin 3.2 g/dL (1.7-4.1); Glucose 128 mg/dL (70-100); HEMOLYSIS < 15 (0-50); Lactate (Lactic Acid) 1.7 mmol/L (0.7-2.1); Lipase 59 U/L (23-300); Potassium 4.1 mmol/L (3.4-5.1); Sodium 138 mmol/L (137-145); Total Protein 7.7 g/dL (6.3-8.2)
--- NOTE | 2020-03-22 11:56 | ED.MALEGU ---
HPI - Male Genitourinary <TIFF Mosqueda - Last Filed: 03/22/20 16:04> General Chief complaint: Urogenital-Male Stated complaint: kidney pain, post procedure Time Seen by Provider: 03/22/20 11:10 Source: patient Mode of arrival: Ambulatory Limitations: no limitations History of Present Illness HPI Narrative: The patient is a 50-year-old male nonsmoker with history of lithotripsy yesterday who presents with a chief complaint of severe left-sided flank pain. He had a lithotripsy yesterday at this facility by Dr. Zaidi. He states that his pain is out of control, he last took 10 mg of oxycodone at 10:00 a.m.. He states he had low-grade fevers muscle aches and chills yesterday after the procedure. States that his pain is so bad that he is vomiting twice. He presents to the emergency department with his . Related Data Previous Rx's Medication Instructions Recorded allopurinol 300 mg tablet 300 mg PO QDAY #90 tab 07/17/12 Allergies Allergy/AdvReac Type Severity Reaction Status Date / Time No Known Drug Allergies Allergy Verified 03/22/20 11:17 Review of Systems <TIFF Mosqueda - Last Filed: 03/22/20 16:04> Review of Systems Narrative: GENERAL: Denies chills, fatigue, malaise, fever, sweats. HEENT: Denies sinus pain, ear pain, sore throat, difficulty swallowing, dizziness. RESPIRATORY: Denies dyspnea, cough, wheezing, hemoptysis, sputum. CARDIOVASCULAR: Denies chest pain, palpitations, orthopnea, edema, GASTROINTESTINAL: See HPI : See HPI MUSCULOSKELETAL: denies weakness, joint pain, or bony pain SKIN: Denies rash, skin lesions, or other NEUROLOGIC: Denies weakness, headache, numbness, change in speech, confusion, seizures, incoordination. PSYCHIATRIC: No concerning psychosocial issues. 12 point review of systems is negative except for those stated above Patient History <TIFF Mosqueda - Last Filed: 03/22/20 16:04> Medical History (Updated 03/22/20 @ 15:32 by TIFF Mosqueda) Dry skin (~2014) Excessive daytime sleepiness (~2014) Family history of prostate cancer in father Gout (~2011) H/O acute gouty arthritis H/O adenomatous polyp of colon History of treatment for tuberculosis Insomnia (~2009) Left nephrolithiasis Morbid obesity with body mass index of 40.0-49.9 (Unknown) Obstructive sleep apnea of adult (~2014) PPD positive Seasonal allergies Snoring (~2009) Tinnitus Surgical History (Updated 03/10/20 @ 11:05 by Mirza Dominguez MD) Anesthesia Carpal tunnel syndrome on both sides Kidney stones (~2011) S/P cholecystectomy (~2004) S/P vasectomy (~2004) Status post colonoscopy (10/13/09) Family History Father Cancer Social History marital status: details: axel Liu, lives in [place] household members: spouse lives independently: Yes caregiver/support person: No housing: house occupational status: employed 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 Normocephalic. No temporal or scalp tenderness. EYES: Pupils equal round and reactive. Extraocular motions intact. No scleral icterus. No injection or drainage. ENT: Nose without bleeding, purulent drainage or septal hematoma. Wearing a mask e. Airway patent. NECK: Trachea midline. No JVD or lymphadenopathy. Supple, nontender, no meningeal signs. CARDIOVASCULAR: Regular rate and rhythm RESPIRATORY: Clear to auscultation. Breath sounds equal bilaterally. No wheezes, rales, or rhonchi. No cough. No increased respiratory effort. No accessory muscle use. GASTROINTESTINAL: Abdomen soft, active bowel sounds all 4 quadrants. No hepato-splenomegaly, or palpable masses. No guarding. Diffuse pain to palpation left lower quadrant EXTREMITIES: No clubbing, cyanosis, or edema. No joint tenderness, effusion, or edema noted. BACK: Nontender without deformity or crepitance. CVA tenderness noted left side NEURO: AOx3. SKIN: No rash or erythema on visible skin Initial Vital Signs Initial Vital Signs: Vital Signs Temperature 98.2 F 03/22/20 11:17 Pulse Rate 76 03/22/20 11:17 Respiratory Rate 24 03/22/20 11:17 Blood Pressure 194/88 H 03/22/20 11:17 Pulse Oximetry 97 03/22/20 11:17 <Darleen Lopez DO - Last Filed: 03/23/20 07:24> Initial Vital Signs Initial Vital Signs: Vital Signs Temperature 98.2 F 03/22/20 11:17 Pulse Rate 76 03/22/20 11:17 Respiratory Rate 24 03/22/20 11:17 Blood Pressure 194/88 H 03/22/20 11:17 Pulse Oximetry 97 03/22/20 11:17 Scores <TIFF Mosqueda - Last Filed: 03/22/20 16:04> GCS [place] coma scale eye opening: Spontaneous Vivi coma scale verbal response: Orientated Vivi coma scale motor response: Obey commands [place] coma scale total score: 15 Course <TIFF Mosqueda - Last Filed: 03/22/20 16:04> Orders Ordered: ED Orders 03/23/20 07:00 Complete Blood Count AUTO DIFF Stat Comprehensive Metabolic Panel Stat Hydromorphone HCl (Hydromorphone 0.5 Mg Inj) 0.5 mg IV Q2H PRN PRN Reason: Pain, Severe (7-10) Sodium Chloride (Normal Saline 0.9%) 1,000 mls @ 125 mls/hr IV CONT RAAD Last Admin: 03/23/20 01:04 Dose: 125 mls/hr Documented by: Infusion: 03/23/20 01:04 Dose: 125 mls/hr Documented by: Admin: 03/22/20 17:15 Dose: 125 mls/hr Documented by: ONIEL Ondansetron HCl (Ondansetron 4 Mg/2 Ml Inj) 4 mg IV Q4HR PRN PRN Reason: Nausea And Vomiting Discontinued Medications Allopurinol (Allopurinol 300 Mg Tablet) 300 mg PO NOW ONE Stop: 03/22/20 19:29 Last Admin: 03/22/20 20:42 Dose: 300 mg Documented by: ONIEL Belladonnbal Alkaloids/Opium (Belladonna/Opium Suppositories) 1 each ID NOW ONE Stop: 03/22/20 14:11 Last Admin: 03/22/20 14:32 Dose: 1 each Documented by: MARY Hydromorphone HCl (Hydromorphone 1 Mg Inj) 1 mg IV Q15MIN PRN PRN Reason: Pain, Severe (7-10) Last Admin: 03/22/20 12:01 Dose: 1 mg Documented by: Admin: 03/22/20 11:24 Dose: 1 mg Documented by: CHRISTIAN Hydromorphone HCl (Hydromorphone 0.5 Mg Inj) 0.5 mg IV NOW ONE Stop: 03/22/20 13:53 Last Admin: 03/22/20 14:07 Dose: 0.5 mg Documented by: MARY Sodium Chloride (Normal Saline 0.9%) 500 mls @ 1,000 mls/hr IV BOLUS ONE Stop: 03/22/20 11:48 Last Infusion: 03/22/20 13:33 Dose: 0 mls/hr Documented by: Admin: 03/22/20 11:24 Dose: 1,000 mls/hr Documented by: CHRISTIAN Ondansetron HCl (Ondansetron 4 Mg/2 Ml Inj) 4 mg IV NOW ONE Stop: 03/22/20 11:20 Last Admin: 03/22/20 11:25 Dose: 4 mg Documented by: CHRISTIAN Tamsulosin HCl (Tamsulosin 0.4 Mg Capsule) 0.4 mg PO NOW ONE Stop: 03/22/20 14:43 Last Admin: 03/22/20 14:45 Dose: 0.4 mg Documented by: MARY Tramadol HCl (Tramadol 50 Mg Tablet) 100 mg PO NOW ONE Stop: 03/22/20 14:10 Last Admin: 03/22/20 14:32 Dose: 100 mg Documented by: MARY Vital Signs Vital signs: Vital Signs - 8 hr 03/22/20 11:17 03/22/20 11:31 03/22/20 12:25 Temperature 98.2 F Pulse Rate 76 65 64 Respiratory Rate 24 Blood Pressure 194/88 H Pulse Oximetry 97 96 03/22/20 12:29 03/22/20 12:30 03/22/20 13:03 Temperature Pulse Rate 67 Respiratory Rate 16 Blood Pressure 111/58 L 102/59 L Pulse Oximetry 93 94 03/22/20 13:30 03/22/20 13:52 03/22/20 14:00 Temperature Pulse Rate 62 67 67 Respiratory Rate 16 16 Blood Pressure 103/61 111/57 L Pulse Oximetry 95 97 96 03/22/20 14:30 03/22/20 14:31 03/22/20 15:00 Temperature Pulse Rate 51 L 50 L 61 Respiratory Rate 14 12 20 Blood Pressure 107/57 L Pulse Oximetry 96 97 100 03/22/20 15:01 Temperature Pulse Rate 59 L Respiratory Rate 19 Blood Pressure 113/52 L Pulse Oximetry 100 <Darleen Lopez, - Last Filed: 03/23/20 07:24> Orders Ordered: ED Orders 03/23/20 07:00 Complete Blood Count AUTO DIFF Stat Comprehensive Metabolic Panel Stat Hydromorphone HCl (Hydromorphone 0.5 Mg Inj) 0.5 mg IV Q2H PRN PRN Reason: Pain, Severe (7-10) Sodium Chloride (Normal Saline 0.9%) 1,000 mls @ 125 mls/hr IV CONT RAAD Last Admin: 03/23/20 01:04 Dose: 125 mls/hr Documented by: Infusion: 03/23/20 01:04 Dose: 125 mls/hr Documented by: Admin: 03/22/20 17:15 Dose: 125 mls/hr Documented by: ONIEL Ondansetron HCl (Ondansetron 4 Mg/2 Ml Inj) 4 mg IV Q4HR PRN PRN Reason: Nausea And Vomiting Discontinued Medications Allopurinol (Allopurinol 300 Mg Tablet) 300 mg PO NOW ONE Stop: 03/22/20 19:29 Last Admin: 03/22/20 20:42 Dose: 300 mg Documented by: ONIEL Belladonna Alkaloids/Opium (Belladonna/Opium Suppositories) 1 each ID NOW ONE Stop: 03/22/20 14:11 Last Admin: 03/22/20 14:32 Dose: 1 each Documented by: MARY Hydromorphone HCl (Hydromorphone 1 Mg Inj) 1 mg IV Q15MIN PRN PRN Reason: Pain, Severe (7-10) Last Admin: 03/22/20 12:01 Dose: 1 mg Documented by: Admin: 03/22/20 11:24 Dose: 1 mg Documented by: CHRISTIAN Hydromorphone HCl (Hydromorphone 0.5 Mg Inj) 0.5 mg IV NOW ONE Stop: 03/22/20 13:53 Last Admin: 03/22/20 14:07 Dose: 0.5 mg Documented by: MARY Sodium Chloride (Normal Saline 0.9%) 500 mls @ 1,000 mls/hr IV BOLUS ONE Stop: 03/22/20 11:48 Last Infusion: 03/22/20 13:33 Dose: 0 mls/hr Documented by: Admin: 03/22/20 11:24 Dose: 1,000 mls/hr Documented by: CHRISTIAN Ondansetron HCl (Ondansetron 4 Mg/2 Ml Inj) 4 mg IV NOW ONE Stop: 03/22/20 11:20 Last Admin: 03/22/20 11:25 Dose: 4 mg Documented by: CHRISTIAN Tamsulosin HCl (Tamsulosin 0.4 Mg Capsule) 0.4 mg PO NOW ONE Stop: 03/22/20 14:43 Last Admin: 03/22/20 14:45 Dose: 0.4 mg Documented by: MARY Tramadol HCl (Tramadol 50 Mg Tablet) 100 mg PO NOW ONE Stop: 03/22/20 14:10 Last Admin: 03/22/20 14:32 Dose: 100 mg Documented by: MARY Vital Signs Vital signs: Vital Signs - 8 hr 03/22/20 11:17 03/22/20 11:31 03/22/20 12:25 Temperature 98.2 F Pulse Rate 76 65 64 Respiratory Rate 24 Blood Pressure 194/88 H Pulse Oximetry 97 96 03/22/20 12:29 03/22/20 12:30 03/22/20 13:03 Temperature Pulse Rate 67 Respiratory Rate 16 Blood Pressure 111/58 L 102/59 L Pulse Oximetry 93 94 03/22/20 13:30 03/22/20 13:52 03/22/20 14:00 Temperature Pulse Rate 62 67 67 Respiratory Rate 16 16 Blood Pressure 103/61 111/57 L Pulse Oximetry 95 97 96 03/22/20 14:30 03/22/20 14:31 03/22/20 15:00 Temperature Pulse Rate 51 L 50 L 61 Respiratory Rate 14 12 20 Blood Pressure 107/57 L Pulse Oximetry 96 97 100 03/22/20 15:01 Temperature Pulse Rate 59 L Respiratory Rate 19 Blood Pressure 113/52 L Pulse Oximetry 100 MDM - Male Genitourinary <Darleen Faustin, OPERATOR [employer]- - Last Filed: 03/22/20 16:04> Lab Data Attestation: I reviewed the patient's lab results. Result diagrams: 03/22/20 11:20 03/22/20 11:20 Labs: Lab Results 03/22/20 03/22/20 03/22/20 Range/Units 11:20 11:20 11:20 WBC 17.0 H (4.5-11.0) X10^3/uL RBC 4.86 (4.5-5.9) X10^6/uL Hgb 15.9 (13.5-17.5) g/dL Hct 45.3 (41-53) % MCV 93.1 (80-100) fL MCH 32.7 (26-34) PG MCHC 35.1 (30-36) % RDW 12.8 (11.6-14.8) % Plt Count 207 (150-400) X10^3/uL Neut % (Auto) 80.8 H (50-75) % Lymph % (Auto) 10.6 L (25-40) % Mccreary % (Auto) 8.3 (3-14) % Eos % (Auto) 0.1 L (2-4) % Baso % (Auto) 0.2 (0-2) % Neut # (Auto) 47970 H (0495-3036) /uL Lymph # (Auto) 1800 (7592-4799) /uL Mccreary # (Auto) 1400 H (0-900) /uL Eos # (Auto) 0 (0-450) /uL Baso # (Auto) 0 (0-100) /uL Sodium 138 (137-145) mmol/L Potassium 4.1 (3.4-5.1) mmol/L Chloride 103 (98-107) mmol/L Carbon Dioxide 29 (22-32) mmol/L BUN 22 H (9-20) mg/dL Creatinine 1.81 H (0.66-1.25) mg/dL Estimated GFR 40.2 L (>60) mL/min BUN/Creatinine Ratio 12.2 (6-22) Glucose 128 H (70-100) mg/dL Lactate 1.7 (0.7-2.1) mmol/L Calcium 9.6 (8.4-10.2) mg/dL Total Bilirubin 0.4 (0.2-1.3) mg/dL AST 35 (17-59) IU/L ALT 59 H (<50) IU/L Alkaline Phosphatase 79 (38-126) U/L Total Protein 7.7 (6.3-8.2) g/dL Albumin 4.5 (3.5-5.0) g/dL Globulin 3.2 (1.7-4.1) g/dL Albumin/Globulin Ratio 1.4 (1.0-2.8) Amylase 46 (30-110) U/L Lipase 59 (23-300) U/L Urine RBC (0-5/HPF) Urine WBC (0-5/HPF) Calcium Oxalate Crystal Urine Bacteria (None) Ur Culture Indicated? SARS-CoV-2 (PCR) (Negative) 03/22/20 03/22/20 Range/Units 12:53 15:05 WBC (4.5-11.0) X10^3/uL RBC (4.5-5.9) X10^6/uL Hgb (13.5-17.5) g/dL Hct (41-53) % MCV (80-100) fL MCH (26-34) PG MCHC (30-36) % RDW (11.6-14.8) % Plt Count (150-400) X10^3/uL Neut % (Auto) (50-75) % Lymph % (Auto) (25-40) % Mccreary % (Auto) (3-14) % Eos % (Auto) (2-4) % Baso % (Auto) (0-2) % Neut # (Auto) (9755-6036) /uL Lymph # (Auto) (5413-3853) /uL Mccreary # (Auto) (0-900) /uL Eos # (Auto) (0-450) /uL Baso # (Auto) (0-100) /uL Sodium (137-145) mmol/L Potassium (3.4-5.1) mmol/L Chloride (98-107) mmol/L Carbon Dioxide (22-32) mmol/L BUN (9-20) mg/dL Creatinine (0.66-1.25) mg/dL Estimated GFR (>60) mL/min BUN/Creatinine Ratio (6-22) Glucose (70-100) mg/dL Lactate (0.7-2.1) mmol/L Calcium (8.4-10.2) mg/dL Total Bilirubin (0.2-1.3) mg/dL AST (17-59) IU/L ALT (<50) IU/L Alkaline Phosphatase (38-126) U/L Total Protein (6.3-8.2) g/dL Albumin (3.5-5.0) g/dL Globulin (1.7-4.1) g/dL Albumin/Globulin Ratio (1.0-2.8) Amylase (30-110) U/L Lipase (23-300) U/L Urine RBC 5-10/hpf H (0-5/HPF) Urine WBC 0-1/hpf (0-5/HPF) Calcium Oxalate Crystal Occasional H Urine Bacteria None seen (None) Ur Culture Indicated? Cult not indicated SARS-CoV-2 (PCR) Negative (Negative) Urine Dip Bedside Urine Glucose Negative Bedside Urine Bilirubin - Negative Bedside Urine Ketone - Negative Urine Specific [place] 1.030 Bedside Urine Occult Blood +++ Bedside Urine pH 6 Bedside Urine Protein - Negative Bedside Urine Urobilinogen - Negative Bedside Urine Nitrite - Negative Bedside Urine Leukocytes - Negative Esterase Imaging Data CT scan - abdomen/pelvis: Radiologist's Impression: [address] [place] [id number] Scan ReportSigned Patient: Jeremiah Wilson [facility]#: [id number]: 1970Acct:[id number]/Sex: 50 / MDate of Service: 03/22/20Loc: EDAccession Number: [id number] Procedure: CT kidney ureter bladder (KUB) Ordering Provider: Darleen Faustin [facility]- PROCEDURE: CT KIDNEY URETER BLADDER (KUB) INDICATIONS: flank pain, lithotripsy left side yesterday TECHNIQUE: Noncontrast 5 mm thick sections acquired from the diaphragms to the symphysis. 5 mm thick coronal and sagittal reformats were then performed. For radiation dose reduction, the following was used: automated exposure control, adjustment of mA and/or kV according to patient size. COMPARISON: [facility], CR, XR KUB, 03/21/2020, 7:29. [facility], CR, XR KUB, 03/04/2020, 16:25. [facility], CT, CT KIDNEY URETER BLADDER (KUB), 11/14/2019, 15:16. FINDINGS: Image quality: Excellent. Lung bases: Lung bases are clear. Heart size is normal. Urinary system: Both kidneys are normal in size. Suspect obstructing calculus at the left UVJ measuring 1 x 0.6 cm, (2/94), new. This may be passing through the UVJ. Mild left hydroureteronephrosis. Additional calculus at the left UPJ measuring 0.7 x 0.5 cm, (4/39), this is at high risk for ureteral obstruction. Additional nonobstructing calculus or calculi in the left renal pelvis. Suspect small peripelvic cysts. Bladder wall thickness is normal; no calcified bladder stones. Other solid organs: Liver is normal in size. Hepatic steatosis. Gallbladder is surgically absent. Pancreas is normal in contours. Spleen is normal in size. No adrenal nodules. Peritoneum and bowel: Unenhanced bowel loops demonstrate normal wall thickness and caliber. Nondilated appendix. No free fluid or air. Nodes and vessels: No retroperitoneal or mesenteric adenopathy by size criteria. Aorta and inferior vena cava are normal in caliber. Abdominal wall: No ventral hernias. Pelvis: No free pelvic fluid. No inguinal hernias or adenopathy. Bones: No suspicious bony lesions. No vertebral body compression fractures. IMPRESSION: 1. Obstructing calculus at the distal left UVJ measuring 1 x 0.6 cm. This may be passing. Mild left hydroureteronephrosis. 2. Additional calculus at the left UPJ measuring 0.7 x 0.5 cm. This is at high risk for ureteral obstruction. 3. Additional nonobstructing left renal pelvis kidney stones. 4. Hepatic steatosis. Dictated by: Jesus Salmeron M.D. on 03/22/2020 at 12:48 Approved by: Jesus Salmeron M.D. on 03/22/2020 at 12:55 [facility] Narrative Medical decision making narrative: The patient is a 50-year-old male status post lithotripsy who presents with a chief complaint of recurrent left-sided flank pain. Pain control was achieved with IV fluids, Dilaudid and Zofran. Labs are concerning with leukocytosis to 17 and slightly increased creatinine. CT KUB is concerning for ureteral stone. He is noted to have a new obstructing calculus at the left UVJ 1 x 0.6 cm. He also has his previously known calculus at the left UPJ at 0.7 x 0.5 cm. He also has some associated mild left hydroureteronephrosis. Thus I spoke with Dr. Zaidi, who did the patient's lithotripsy yesterday. He requested that I attempt different pain control including belladonna suppository and tramadol. He requested IV Tylenol, though I spoke with pharmacy and this is only allowed by Anesthesia at this institution. After these medications, the patient was still in persistent pain. He is uncomfortable going home at this point, so I spoke with Dr. Zaidi, who stated he would accept the patient for observation NPO after midnight in order to attempt to help the patient with his stones. Patient states understanding and appreciation. He is coronavirus negative at this time. <Darleen Lopez, DO - Last Filed: 03/23/20 07:24> Lab Data Labs: Lab Results 03/22/20 03/22/20 03/22/20 Range/Units 11:20 11:20 11:20 WBC 17.0 H (4.5-11.0) X10^3/uL RBC 4.86 (4.5-5.9) X10^6/uL Hgb 15.9 (13.5-17.5) g/dL Hct 45.3 (41-53) % MCV 93.1 (80-100) fL MCH 32.7 (26-34) PG MCHC 35.1 (30-36) % RDW 12.8 (11.6-14.8) % Plt Count 207 (150-400) X10^3/uL Neut % (Auto) 80.8 H (50-75) % Lymph % (Auto) 10.6 L (25-40) % Mccreary % (Auto) 8.3 (3-14) % Eos % (Auto) 0.1 L (2-4) % Baso % (Auto) 0.2 (0-2) % Neut # (Auto) 36878 H (2358-3382) /uL Lymph # (Auto) 1800 (6158-3281) /uL Mccreary # (Auto) 1400 H (0-900) /uL Eos # (Auto) 0 (0-450) /uL Baso # (Auto) 0 (0-100) /uL Sodium 138 (137-145) mmol/L Potassium 4.1 (3.4-5.1) mmol/L Chloride 103 (98-107) mmol/L Carbon Dioxide 29 (22-32) mmol/L BUN 22 H (9-20) mg/dL Creatinine 1.81 H (0.66-1.25) mg/dL Estimated GFR 40.2 L (>60) mL/min BUN/Creatinine Ratio 12.2 (6-22) Glucose 128 H (70-100) mg/dL Lactate 1.7 (0.7-2.1) mmol/L Calcium 9.6 (8.4-10.2) mg/dL Total Bilirubin 0.4 (0.2-1.3) mg/dL AST 35 (17-59) IU/L ALT 59 H (<50) IU/L Alkaline Phosphatase 79 (38-126) U/L Total Protein 7.7 (6.3-8.2) g/dL Albumin 4.5 (3.5-5.0) g/dL Globulin 3.2 (1.7-4.1) g/dL Albumin/Globulin Ratio 1.4 (1.0-2.8) Amylase 46 (30-110) U/L Lipase 59 (23-300) U/L Urine RBC (0-5/HPF) Urine WBC (0-5/HPF) Calcium Oxalate Crystal Urine Bacteria (None) Ur Culture Indicated? SARS-CoV-2 (PCR) (Negative) 03/22/20 03/22/20 Range/Units 12:53 15:05 WBC (4.5-11.0) X10^3/uL RBC (4.5-5.9) X10^6/uL Hgb (13.5-17.5) g/dL Hct (41-53) % MCV (80-100) fL MCH (26-34) PG MCHC (30-36) % RDW (11.6-14.8) % Plt Count (150-400) X10^3/uL Neut % (Auto) (50-75) % Lymph % (Auto) (25-40) % Mccreary % (Auto) (3-14) % Eos % (Auto) (2-4) % Baso % (Auto) (0-2) % Neut # (Auto) (0708-3131) /uL Lymph # (Auto) (2972-4422) /uL Mccreary # (Auto) (0-900) /uL Eos # (Auto) (0-450) /uL Baso # (Auto) (0-100) /uL Sodium (137-145) mmol/L Potassium (3.4-5.1) mmol/L Chloride (98-107) mmol/L Carbon Dioxide (22-32) mmol/L BUN (9-20) mg/dL Creatinine (0.66-1.25) mg/dL Estimated GFR (>60) mL/min BUN/Creatinine Ratio (6-22) Glucose (70-100) mg/dL Lactate (0.7-2.1) mmol/L Calcium (8.4-10.2) mg/dL Total Bilirubin (0.2-1.3) mg/dL AST (17-59) IU/L ALT (<50) IU/L Alkaline Phosphatase (38-126) U/L Total Protein (6.3-8.2) g/dL Albumin (3.5-5.0) g/dL Globulin (1.7-4.1) g/dL Albumin/Globulin Ratio (1.0-2.8) Amylase (30-110) U/L Lipase (23-300) U/L Urine RBC 5-10/hpf H (0-5/HPF) Urine WBC 0-1/hpf (0-5/HPF) Calcium Oxalate Crystal Occasional H Urine Bacteria None seen (None) Ur Culture Indicated? Cult not indicated SARS-CoV-2 (PCR) Negative (Negative) Urine Dip Bedside Urine Glucose Negative Bedside Urine Bilirubin - Negative Bedside Urine Ketone - Negative Urine Specific [place] 1.030 Bedside Urine Occult Blood +++ Bedside Urine pH 6 Bedside Urine Protein - Negative Bedside Urine Urobilinogen - Negative Bedside Urine Nitrite - Negative Bedside Urine Leukocytes - Negative Esterase Discharge Plan Departure Patient Disposition: Admitted as Observation Clinical Impression: Left ureteral calculus Admit Date/Time: 03/22/20 15:42 Admit Provider: Fam Zaidi <Darleen Lopez, - Last Filed: 03/23/20 07:24> Cosign ED Attending Cosignature Attestation: I was immediately available in the department for consultation. Documentation has been reviewed. Case was discussed, labs and imaging reviewed. Dr. Zaidi asked if we can treat patient's pain more aggressively or unable to control patient's pain and he has been admitted with plan for lithotripsy on Tuesday when the device available
--- NOTE | 2020-03-22 12:05 | DI.CT.S_ITS ---
PROCEDURE: CT KIDNEY URETER BLADDER (KUB) INDICATIONS: flank pain, lithotripsy left side yesterday TECHNIQUE: Noncontrast 5 mm thick sections acquired from the diaphragms to the symphysis. 5 mm thick coronal and sagittal reformats were then performed. For radiation dose reduction, the following was used: automated exposure control, adjustment of mA and/or kV according to patient size. COMPARISON: [facility], CR, XR KUB, 03/21/2020, 7:29. [facility], CR, XR KUB, 03/04/2020, 16:25. [facility], CT, CT KIDNEY URETER BLADDER (KUB), 11/14/2019, 15:16. FINDINGS: Image quality: Excellent. Lung bases: Lung bases are clear. Heart size is normal. Urinary system: Both kidneys are normal in size. Suspect obstructing calculus at the left UVJ measuring 1 x 0.6 cm, (2/94), new. This may be passing through the UVJ. Mild left hydroureteronephrosis. Additional calculus at the left UPJ measuring 0.7 x 0.5 cm, (4/39), this is at high risk for ureteral obstruction. Additional nonobstructing calculus or calculi in the left renal pelvis. Suspect small peripelvic cysts. Bladder wall thickness is normal; no calcified bladder stones. Other solid organs: Liver is normal in size. Hepatic steatosis. Gallbladder is surgically absent. Pancreas is normal in contours. Spleen is normal in size. No adrenal nodules. Peritoneum and bowel: Unenhanced bowel loops demonstrate normal wall thickness and caliber. Nondilated appendix. No free fluid or air. Nodes and vessels: No retroperitoneal or mesenteric adenopathy by size criteria. Aorta and inferior vena cava are normal in caliber. Abdominal wall: No ventral hernias. Pelvis: No free pelvic fluid. No inguinal hernias or adenopathy. Bones: No suspicious bony lesions. No vertebral body compression fractures. IMPRESSION: 1. Obstructing calculus at the distal left UVJ measuring 1 x 0.6 cm. This may be passing. Mild left hydroureteronephrosis. 2. Additional calculus at the left UPJ measuring 0.7 x 0.5 cm. This is at high risk for ureteral obstruction. 3. Additional nonobstructing left renal pelvis kidney stones. 4. Hepatic steatosis. Dictated by: Jesus Salmeron M.D. on 03/22/2020 at 12:48 Approved by: Jesus Salmeron M.D. on 03/22/2020 at 12:55
[2020-03-22 13:08] LABS: Bacteria Urine None Seen
[2020-03-22 13:35] LABS: RBC Urine 5-10/HPF (0-5/HPF); WBC Urine 0-1/HPF (0-5/HPF)
[2020-03-22 13:36] LABS: Calcium Oxalate Crystals Urine Occasional; Culture Indicated Urine Cult Not Indicated
[2020-03-22] MEDS: HYDROMORPHONE 0.5 MG INJ IV (14:07)
[2020-03-22] MEDS: TRAMADOL 50 MG TABLET 100 MG PO (14:32)
[2020-03-22] MEDS: BELLADONNA/OPIUM SUPPOSITORIES 1 EACH PR (14:32)
[2020-03-22] MEDS: TAMSULOSIN 0.4 MG CAPSULE PO (14:45)
[2020-03-22 15:32] LABS: COVID19 -Nasal RAPID Negative (Negative)
[2020-03-22] MEDS: SODIUM CHLORIDE 0.9% 1,000 ML 125 ML IV (17:15)
[2020-03-22] MEDS: allopurinoL 300 MG TABLET PO (20:42)
[2020-03-23] VITALS (8 sets, daily range): BP systolic 102–153; BP diastolic 53–81; PULSE 59–73; RESP 18–20; TEMP 36.3–36.9; O2SAT 94–98
[2020-03-23] MEDS: SODIUM CHLORIDE 0.9% 1,000 ML 125 ML IV ×2 (01:04→09:24)
[2020-03-23 08:29] LABS: Add Manual Diff / Slide Review NO; Basophils Absolute Auto 0 /uL (0-100); Basophils Percent Auto 0.3 % (0-2); Eosinophils Absolute Auto 100 /uL (0-450); Eosinophils Percent Auto 1.5 % (2-4); Hematocrit 39.4 % (41-53); Hemoglobin 13.7 g/dL (13.5-17.5); Lymphocytes Absolute Auto 2200 /uL (1100-4500); Lymphocytes Percent Auto 28.7 % (25-40); Mean Corpuscular HGB Conc 34.6 % (30-36); Mean Corpuscular Hemoglobin 32.9 PG (26-34); Mean Corpuscular Volume 95.1 fL (80-100); Monocytes Absolute Auto 800 /uL (0-900); Monocytes Percent Auto 10.3 % (3-14); Neutrophils Absolute Auto 4600 /uL (1500-7000); Neutrophils Percent Auto 59.2 % (50-75); Platelet Count 155 X10^3/uL (150-400); Red Blood Cell Count 4.15 X10^6/uL (4.5-5.9); Red Cell Distribution Width 13.2 % (11.6-14.8); White Blood Cell Count 7.7 X10^3/uL (4.5-11.0)
[2020-03-23 08:42] LABS: Alanine Aminotransferase 41 IU/L (<50); Albumin 3.6 g/dL (3.5-5.0); Albumin Globulin Ratio 1.4 (1.0-2.8); Alkaline Phosphatase 63 U/L (38-126); Aspartate Aminotransferase 26 IU/L (17-59); BUN Creatinine Ratio 17.8 (6-22); Bilirubin Total 0.4 mg/dL (0.2-1.3); Blood Urea Nitrogen 18 mg/dL (9-20); Calcium 8.6 mg/dL (8.4-10.2); Carbon Dioxide 32 mmol/L (22-32); Chloride 107 mmol/L (98-107); Estimated Glomerular Filt Rate > 60.0 mL/min (>60); Globulin 2.5 g/dL (1.7-4.1); Glucose 92 mg/dL (70-100); HEMOLYSIS < 15 (0-50); Potassium 4.5 mmol/L (3.4-5.1); Sodium 140 mmol/L (137-145); Total Protein 6.1 g/dL (6.3-8.2)
--- NOTE | 2020-03-23 10:18 | PC.NURSE ---
Day shift: Pt resting in bed w/ no c/o pain or discomfort. Makes needs known proper. Denies any pain or nausea. IV fluids infusing per MAR. Pt has voided approx 500 mls of clear guido/yellow urine (mildly concentrated in appearance) with no blood or clots. Tolerating SCD's and encouraged to perform foot waves. Call light in reach. Pt independent in room. Will continue to monitor.
--- NOTE | 2020-03-23 11:56 | PM.HP.1 ---
History of Present Illness History of Present Illness Date Patient Seen: 03/23/20 Time Patient Seen: 09:30 Date of Onset of Symptoms: 03/23/20 Chief complaint: kidney pain, post procedure Narrative: The patient is a 50-year-old white male with a history of uric acid nephrolithiasis presenting to the [facility] ED in the afternoon of 03/23/2020 with complaint of severe and unremitting left flank and abdominal pain. He is status post otherwise uncomplicated left extracorporeal shockwave lithotripsy on the morning of 03/22/2020, for intermittently symptomatic left ureteropelvic junction calculus. CT KUB 03/23/2020, revealed evidence of treatment related fragmentation and likely very distal, impaction of fines and fragments within the left intramural ureter (steinstrasse). Additionally, there is a possible intact remaining fragments and the same the left UPJ measuring up to 7 mm. There also some small layering fragments line dependently in the left inferior collecting system. He is admitted for pain control. Since admission his pain has been minimal. He has voided without difficulty at least 3 times without evidence of further fragment passage. Patient History Medical History (Updated 03/22/20 @ 15:32 by Darleen Faustin [facility]-) Dry skin (~2014) Excessive daytime sleepiness (~2014) Family history of prostate cancer in father Gout (~2011) H/O acute gouty arthritis H/O adenomatous polyp of colon History of treatment for tuberculosis Insomnia (~2009) Left nephrolithiasis Morbid obesity with body mass index of 40.0-49.9 (Unknown) Obstructive sleep apnea of adult (~2014) PPD positive Seasonal allergies Snoring (~2009) Tinnitus Surgical History (Updated 03/10/20 @ 11:05 by Mirza Dominguez MD) Anesthesia Carpal tunnel syndrome on both sides Kidney stones (~2011) S/P cholecystectomy (~2004) S/P vasectomy (~2004) Status post colonoscopy (10/13/09) Family & Social History Family History Father Cancer Social History: household members spouse Prior Living Arrangements House lives independently Yes caregiver/support person No Safety & Behavioral: Feels Safe in Current Yes Environment Been Physically Hurt or No Threatened By a Person Suicidal Ideation Description None Suicide Plan Description No Plan Tobacco & Substance use: Smoking Status Never smoker alcohol intake never alcohol intake frequency 0-2 drinks per day Substance Use Type does not use Meds Home Medications and Allergies Home Medications Medication Instructions Recorded Confirmed Type allopurinol 300 mg tablet 300 mg PO QDAY #90 tab 07/17/12 03/22/20 Rx Allergies Allergy/AdvReac Type Severity Reaction Status Date / Time No Known Drug Allergies Allergy Verified 03/22/20 11:17 Review of Systems Review of Systems ROS: Yes All systems reviewed with the patient and are negative except as otherwise documented Exam Vital Signs (past 8 hours): - 03/23/20 04:48 03/23/20 07:25 03/23/20 07:54 Temperature 97.4 F L 97.4 F L Pulse Rate 59 L 63 73 Respiratory Rate 18 18 Blood Pressure 103/53 L 126/59 L Pulse Oximetry 98 97 95 Oxygen Delivery Method Room Air Oxygen Flow Rate 0 Narrative Exam Narrative: This is a well-developed, moderately over nourished middle-aged white male sitting upright in bed in no distress. Head/neck-sclera clear and pupils are equal and round. Chest-clear, equal, and unlabored expansion bilaterally. Heart-regular rhythm in regular rate. No extra sounds. Abdomen-moderately obese and nontender. No rebound or guarding. Objective Labs Result Diagrams: 03/23/20 07:55 03/23/20 07:55 Labs: Laboratory Results - last 24 hr 03/22/20 03/22/20 03/23/20 12:53 15:05 07:55 WBC 7.7 D RBC 4.15 L Hgb 13.7 Hct 39.4 L MCV 95.1 MCH 32.9 MCHC 34.6 RDW 13.2 Plt Count 155 Neut % (Auto) 59.2 D Lymph % (Auto) 28.7 [place] % (Auto) 10.3 Eos % (Auto) 1.5 L Baso % (Auto) 0.3 Neut # (Auto) 4600 Lymph # (Auto) 2200 [place] # (Auto) 800 Eos # (Auto) 100 Baso # (Auto) 0 Sodium Potassium Chloride Carbon Dioxide BUN Creatinine Estimated GFR BUN/Creatinine Ratio Glucose Calcium Total Bilirubin AST ALT Alkaline Phosphatase Total Protein Albumin Globulin Albumin/Globulin Ratio Urine RBC 5-10/hpf H Urine WBC 0-1/hpf Calcium Oxalate Crystal Occasional H Urine Bacteria None seen Ur Culture Indicated? Cult not indicated SARS-CoV-2 (PCR) Negative 03/23/20 07:55 WBC RBC Hgb Hct MCV MCH MCHC RDW Plt Count Neut % (Auto) Lymph % (Auto) [place] % (Auto) Eos % (Auto) Baso % (Auto) Neut # (Auto) Lymph # (Auto) [place] # (Auto) Eos # (Auto) Baso # (Auto) Sodium 140 Potassium 4.5 Chloride 107 Carbon Dioxide 32 BUN 18 Creatinine 1.01 Estimated GFR > 60.0 BUN/Creatinine Ratio 17.8 Glucose 92 Calcium 8.6 Total Bilirubin 0.4 AST 26 ALT 41 Alkaline Phosphatase 63 Total Protein 6.1 L Albumin 3.6 Globulin 2.5 Albumin/Globulin Ratio 1.4 Urine RBC Urine WBC Calcium Oxalate Crystal Urine Bacteria Ur Culture Indicated? SARS-CoV-2 (PCR) Assessment & Plan Assessment & Plan narrative: Assessment: 1. Obstructing left distal ureteral fragments status post left ESWL. 2. Intractable left renal colic. 3. Residual intact left UPJ fragment versus residual disrupted left UPJ fragment. Reviewed findings and discussed impression and options. Utilized line diagrams in the patient's room for illustration and at of occasion of the film record. Explained that because he has had failure to progress with expectant measures, that is failure to pass any fragments, that in her ventral options are indicated. I explained these at length in detail. Explained the indications and rationale for same. Explained the common side effects, possible complications, perioperative limitations and expectations, and reasonable expectations of outcomes and recovery for the below plan. Plan: 1. Schedule/ CYSTOSCOPY/ LEFT URETEROSCOPIC LASER LITHOTRIPSY/LEFT URETERAL STENT PLACEMENT/POSSIBLE LEFT URETERAL MEATOTOMY.
[2020-03-23] MEDS: TAMSULOSIN 0.4 MG CAPSULE PO (12:23)
--- NOTE | 2020-03-23 12:31 | CM.DANOTE ---
DCP assessment: EMR reviewed: Patient is a 50 yr old male who was admitted for kidney pain- patients PCP is Dr. Dominguez. CM/Rn met with patient at the bedside and explained role. patient was alert and oriented x3 and stated his pain has been mostly controlled since being here. Patient currently lives at home with his and is Independent with all ADLs and drives at baseline. Patient has been scheduled for Cystoscopy of Lt ureter with poss stent placement later today or first thing Tuesday morning. I: [place] and self pay Plan: D/C home with when medically stable. No identified D/c planning needs noted at this time. Cm department will follow to assist with any new D/C planning needs that may arise. Marisol Peña RN Discharge Planning/Care Management CM Discharge Assessment Start: 03/23/20 12:28 Freq: Status: Active Protocol: Document 03/23/20 12:29 HS (Rec: 03/23/20 12:31 HS [id number]) Discharge Planning Assessment Assigned Vulnerability Researcher Marisol Peña RN DPOA/Assigned Designee Name Trinidad Wilson () Contact Information [phone] Advance Directives? No Advance Directives on File No History Provided By Patient,Medical Record Has Patient been admitted in last 30 No days? Prior Living Arrangements House Household Members spouse Type of transporation used prior to Drives own vehicle admit Independent with ADL's Yes Is patient alert and oriented? Yes Caregiver for Another No Barriers to Discharge No Discharge Plan Home Transportation Arrangement patients will transport home POV when medically stable Referrals Initiated None needed Whiteboard Updated in Patient Room with Yes name and ext. # of Vulnerability Researcher Review Status In Process Next Review Type Continued Stay Review
--- NOTE | 2020-03-23 13:01 | PC.NURSE ---
Day shift: Per Dr Zaidi Pt to NPO at 0300 tomorrow. Reg diet unitl then and ok to pause IV fluids infusing. IV fluids to be no longer paused when Pt return to NPO status tomorrow. Pt is aware of this as well. Pt's procedure is planned for tomorrow afternoon. Pt encouraged to ambulate in halls as tolerated. Denies any pain or nausea at this time. Urine strainer in BR. Per MD, strain all urine and send any stones to lab. Will continue with plan of care.
--- NOTE | 2020-03-23 14:54 | PC.NURSE ---
Day shift: Pt ambulating often in halls (approx 4 trips around the unit) this afternoon. Tolerating well. No nausea and no pain. Good urine output with not stones strained this shift. Makes needs known proper.
[2020-03-23] MEDS: COLCHICINE 0.6 MG TABLET PO ×2 (17:08→18:18)
[2020-03-23 17:31] LABS: Uric Acid 5.3 mg/dL (3.5-8.5)
[2020-03-23] MEDS: allopurinoL 300 MG TABLET PO (20:18)
[2020-03-24] VITALS (12 sets, daily range): BP systolic 114–141; BP diastolic 61–84; PULSE 56–110; RESP 12–89; TEMP 36.1–37.4; O2SAT 21–98; BMI 43.2
--- NOTE | 2020-03-24 | DI.RAD.S_ITS ---
PROCEDURE: XR ABDOMEN 1V INDICATIONS: STENT PLACEMENT TECHNIQUE: One view of the abdomen acquired. COMPARISON: [facility], CT, CT KIDNEY URETER BLADDER (KUB), 03/22/2020, 12:36. FINDINGS: Surgical changes and devices: Limited evaluation of the left abdomen in the area of the left kidney documenting placement of a left-sided ureteral stent with its upper aspect visualized, in the expected position of the left renal collecting system.. Bowel: Bowel gas pattern is normal. Soft tissues: No suspicious abdominal calcifications. Visualized solid organ contours appear normal in size. Bones: No suspicious bony lesions. IMPRESSION: Normal positioning of a left ureteral stent had its upper aspect. Dictated by: Yahir Arroyo M.D. on 03/25/2020 at 10:04 Approved by: Yahir Arroyo M.D. on 03/25/2020 at 10:05
[2020-03-24] MEDS: SODIUM CHLORIDE 0.9% 1,000 ML 125 ML IV (08:02)
--- NOTE | 2020-03-24 09:38 | PC.NURSE ---
Day shift: Pt sitting in chair and working on computer. Denies any pain or nausea. When urinating he denies any pain or passing of any stones. Has been ambulating in room. Tolerating NPO status and is aware that procedure is planned for after 1500 today. Makes needs know. Steady on feet. Will continue to monitor and continue w/ plan of care.
--- NOTE | 2020-03-24 12:38 | DIET.PN ---
Dietary Progress Note Assessment: 50y M admitted for kidney pain after lithotripsy. RD consult requested by charge nurse for low purine MNT. 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 Pt reports not being a medication dino so doesn't regularly f/u c PCP and gets most care from [facility] on acute basis. However, this px is debilitating so pt has been taking allopurinol daily for past 9w and a dose of colchicine this week (with uric acid level 5.3 WNL) but feels like he is in a flare right now. Pt reports his toe and knee joint pain tend to get worse with increased sugar consumption which is not high purine. Pt does not drink etoh and feels he stays hydrated c good water consumption. Pt started using [employer] meal kits 6mo ago to improve diet quality. Pt consumes meat, shrimp, beans on regular basis. Usual Day: B: coffee c cambodian muffin L: street taco D: [employer] Fresh meal kit Labs: Uric Acid 5.3 WNL Interventions: 1. Provided pt Low Purine MNT, encouraged pt to log food journal for a few weeks to relate food intake and joint sx to find correlation. Monitoring/Evaluations: Pt requests outpatient nutrition visit. RD will request from PCP Angelica.
--- NOTE | 2020-03-24 13:52 | PC.NURSE ---
Day shift: Urine has been strained after each void today and produced no stones or evidence of any stones. Will continue to monitor this per MD instructions. Pt also had a shower today at approx 1200. After shower he declined to be hooked back up to the IV fluids. He stated I feel plenty hydrated. Will ask him again in an hour if IV fluids can be started. Denies any pain, chest pain or nausea at this time. Pt also stated that he is starting to feel hungry. amkes needs known proper. Independent in room.
--- NOTE | 2020-03-24 14:45 | PC.NURSE ---
Day shift: Pt wants to not be hooked up to IV fluids at this time.
--- NOTE | 2020-03-24 19:11 | PC.NURSE ---
PATIENT TAKEN TO SURGERY
[2020-03-24] MEDS: allopurinoL 300 MG TABLET PO (19:38)
[2020-03-24] MEDS: LACTATED RINGERS 1,000 ML 100 ML IV ×2 (19:40→22:18)
--- NOTE | 2020-03-24 20:21 | PM.PREOP ---
Pre-operative Note Interval Note History & Physical reviewed/Exam performed by Physician: Yes Changes to H&P: No
[2020-03-24] MEDS: CEFAZOLIN VIAL 3 GM in SODIUM CHLORIDE 0.9% 100 ML 200 ML IV (21:44)
--- NOTE | 2020-03-24 22:13 | SUR.OPER ---
Lithotomy on padded OR bed, head on pillow, arms secured on padded arm boards at <90 degrees abduction. Legs secured in padded yellow fins stirrups.
[2020-03-24] MEDS: IOPAMIDOL 15 ML VIAL INJ (22:19)
[2020-03-24] MEDS: BELLADONNA/OPIUM SUPPOSITORIES 1 EACH PR (22:37)
--- NOTE | 2020-03-24 22:43 | P.OP_ITS ---
Operative Date/Time/Diagnoses Date of procedure: 03/24/20 Time of procedure: 22:43 Pre-op diagnosis: 1. 7 mm left ureteral pelvic junction calculus fragments 2. Left distal ureteral obstructing calculi (steinstrasse). 3. Status post left extracorporeal shockwave lithotripsy 03/21/2020 Post-op diagnosis: same Procedure & Clinicians Procedure: 1. Cystoscopy and left ureteroscopic laser lithotripsy 2. Cystoscopy and left ureteral stent placement (6 Stateless by 22-32 cm multi- length). 3. Left distal ureteral calculi removal Same procedure as scheduled: Yes Indications: 1. 7 mm left ureteropelvic junction calculus fragment. 2. Left distal ureteral structure in due to multiple calculus fragments. 3. Status post left ESWL 03/21/2020 Surgeon: Fam Zaidi Click Yes if Unassisted: Yes Anesthesia Type: General Operative Notes Findings: 1. Urethra-normal caliber without annular stricture or lesion. 2. External sphincter-intact and coapted. 3. Prostate-3.5-4 cm length with mild lateral lobe hyperplasia. 4. Bladder-trace trabeculation. Normal right ureteral orifice and left ureteral orifice position. The left ureteral orifice had [id number] surrounding erythema. 5. Left ureter-fine granules of pummace and sand were disrupted from the impacted position left distal ureter. Left ureteropelvic junction calculus was fragmented into fine pieces with the laser. Closure Type: not applicable Specimen(s): none sent Applied: other (#6F x 22-32 cm multi-length stent.) Estimated Blood Loss (mL): 0 Blood products transfused: none Tourniquet time (min): 0 Procedure in detail: Patient was positioned supine was administered general anesthesia. He was then repositioned semi lithotomy and the lower abdomen, genitalia, and genitalia were prepped and draped in sterile fashion. The 22 Stateless panendoscope was then passed lower urinary tract with findings as described above. A 0.35 hybrid guidewire was then advanced in left ureteral orifice and advanced proximally under direct and fluoroscopic guidance. The panendoscope was then backloaded off the thyroid guidewire and a dual lumen ureteral access sheath was then advanced over this wire under fluoroscopic guidance. Through the accessory port a 2nd hybrid guidewire was advanced a, again under fluoroscopic guidance. Ureteral access sheath was backloaded off both wires. One wire was secured to the for draped. Stay 1 the flexible year for scope was advanced into the lower urinary tract in the left collecting system contents. The access wire was then backloaded out of the ureteral scope and contrast was utilized to delineate the intrarenal collecting system. Painstaking evaluation of each calyceal space was undertaken under direct and fluoroscopic guidance with assistance of the contrast. A collection of fragments was then identified and the lower pole, mildly dilated system. A 273 micron laser fiber was then selected. All operating room personnel and patient were fitted with laser safety eyewear. Laser lithotripsy was then undertaken a break down all the residual material and fine particles. The flexible ureteral scope was then removed. The panendoscope was then front loaded on the hybrid guidewire. Over this a 6 Stateless by 22-32 cm multi-length stent was advanced and positioned in the left collecting system satisfactorily. A RETRIEVAL LINE WAS LEFT ATTACHED. The bladder was then drained completely and all instrumentation was removed a final time. The patient was then repositioned supine, awakened, and transferred to a [place] for transport to the recovery room. Complications: none Post-operative Condition: stable Disposition: PACU Plan for aftercare: Discharge home tonight or early tomorrow morning attending patient preference and course in recovery.
--- NOTE | 2020-03-24 23:46 | SUR.PHASEI ---
Bedside report given to ABIGAIL Pacheco. Pt was in stable condition upon transfer.
[2020-03-24] MEDS: HYDROMORPHONE 2 MG TABLET PO (23:51)
[2020-03-24] MEDS: COLCHICINE 0.6 MG TABLET 1.2 MG PO (23:51)
[2020-03-25 00:10] VITALS: BP 153/97; PULSE 74; RESP 18; TEMP 36.7
[2020-03-25] MEDS: COLCHICINE 0.6 MG TABLET PO (01:07)
[2020-03-25] MEDS: polyethylene glycoL 3350 17 GM POWD.PACK PO (01:07)
[2020-03-25] MEDS: DOCUSATE 100 MG CAPSULE PO (01:07)
[2020-03-25 01:13] VITALS: BP 144/101; PULSE 105; RESP 16; TEMP 36.4; O2SAT 94
--- NOTE | 2020-03-25 01:44 | PC.NURSE ---
0100- Patient states he is more comfortable. Describes a bloated feeling in the abdomen and states he has not had a bowel movement since last Tuesday. Bowel care medications ordered per Dr. Zaidi. Patient states he is having a gout flare as well at this time medicated per orders. Will monitor.
[2020-03-25 02:36] VITALS: BP 152/91; PULSE 87
[2020-03-25 05:23] VITALS: BP 140/74; PULSE 51; RESP 16; TEMP 36.7; O2SAT 93
--- NOTE | 2020-03-25 07:01 | PC.NURSE ---
0700- Patient discharge instruction given. Patient questions answered and IV removed. Stable at time of discharge.
--- NOTE | 2020-03-25 07:28 | PC.NURSE ---
Day shift: Pt left unit at approx 0730. Paperwork signed and all questions answered. Pt able to ambulate to car driven by his spouse. Accompanied by JOVANA Wray per protocol. Has all personal belongings. Has MD scripts.
--- NOTE | 2020-03-28 09:26 | P.DS_ITS ---
History of Present Illness History of Present Illness Chief complaint: kidney pain, post procedure Narrative: The patient is a 50-year-old white male with a history of uric acid nephrolithiasis presenting to the [facility] ED in the afternoon of 03/23/2020 with complaint of severe and unremitting left flank and abdominal pain. He is status post otherwise uncomplicated left extracorporeal shockwave lithotripsy on the morning of 03/22/2020, for intermittently symptomatic left ureteropelvic junction calculus. CT KUB 03/23/2020, revealed evidence of treatment related fragmentation and likely very distal, impaction of fines and fragments within the left intramural ureter (steinstrasse). Additionally, there is a possible intact remaining fragments and the same the left UPJ measuring up to 7 mm. There also some small layering fragments line dependently in the left inferior collecting system. He is admitted for pain control. Since admission his pain has been minimal. He has voided without difficulty at least 3 times without evidence of further fragment passage. Discharge Providers Provider Date of admission: 03/22/20 15:42 Discharge Date: 03/25/20 Primary care physician: Mirza Dominguez MD Consults: 03/24/20 19:28 Consult to Respiratory Therapy Evaluate & Treat Comment: Physician Instructions: Evaluate and treat Discharge provider: Fam Zaidi MD Exam Vital Signs (past 8 hours): Oxygen Delivery Method Room Air Oxygen Flow Rate 0 Objective Labs Result Diagrams: 03/23/20 07:55 03/23/20 07:55 [facility] Medical History Dry skin (~2014) Excessive daytime sleepiness (~2014) Family history of prostate cancer in father Gout (~2011) H/O acute gouty arthritis H/O adenomatous polyp of colon History of treatment for tuberculosis Insomnia (~2009) Left nephrolithiasis Morbid obesity with body mass index of 40.0-49.9 (Unknown) Obstructive sleep apnea of adult (~2014) PPD positive Seasonal allergies Snoring (~2009) Tinnitus Surgical History Anesthesia Carpal tunnel syndrome on both sides Kidney stones (~2011) S/P cholecystectomy (~2004) S/P vasectomy (~2004) Status post colonoscopy (10/13/09) Family History Father Cancer Social History marital status: details: axel Liu, lives in [place] household members: spouse lives independently: Yes caregiver/support person: No housing: house occupational status: 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) Smoking Status: Never smoker alcohol intake: never substance use type: does not use Discharge Plan Discharge Plan Patient Disposition: Home Provider Discharge Comment: Please contact Urology Clinic in 1-2 days to schedule postop follow-up visit Discharge orders & Medications Prescriptions: Continued allopurinol 300 mg tablet 300 mg PO QDAY Qty: 90 RF: 3 No Action multivitamin Tablet 1 tab PO DAILY RF: 0 indomethacin 25 mg capsule 25 mg PO BID RF: 0 colchicine 0.6 mg capsule 0.6 mg PO DAILY RF: 0 Follow up/Referrals: Mirza Dominguez MD [Primary Care Provider] - Diet/Activity/Treatments Diet: Diet as Tolerated Activity: Ad maylin beginning 03/25/2020 Skin/Wound/Dressing Care Report to your healthcare provider any signs of infection, such as:: chills, fever and increased pain Visit Report/Discharge Packet Instructions: DI for Cystoscopy, DI for Prescription Opioid Use, DI for Laser Lithotripsy Stand Alone Forms: Surgery Discharge Discharge Data Primary Care Provider: Mirza Dominguez Attending Provider: Fam Zaidi
== END 2020-03-25 07:29 | disposition home or self-care (01) ==
LOC: ED 15:32 → AC 15:43
PROVIDERS: Admitting Provider Specialist; Emergency Provider Nurse Practitioner Family; PCP Internal Medicine; Referring Provider Nurse Practitioner Family; Visit Provider Specialist
PROC: (CPT 52356; principal; 2020-03-24 19:30)
DX: N20.1 Calculus of ureter (principal); R10.9 Unspecified abdominal pain; Z87.442 Personal history of urinary calculi; G47.33 Obstructive sleep apnea (adult) (pediatric); E66.01 Morbid (severe) obesity due to excess calories; Z20.822 Contact with and (suspected) exposure to COVID-19
CPT/HCPCS: 52356; 36415; 51798; 74018; 74176; 76000; 80053; 81003; 81015; 82150; 83605; 83690; 84550; 85025; 87635; 94762; 96361; 96365; 96375; 96376; 99284; C9803; G0378; J0690; J1100; J1170; J2405; J2704; J3010

== ENCOUNTER → 2020-04-14 11:29 | Outpatient (CLI) | payer OTHER, SELFPAY ==
[2020-03-26 09:37] VITALS: BMI 43.2
[2020-04-14 12:32] LABS: COVID19 -Nasal RAPID Negative (Negative)
== END ==
PROVIDERS: PCP Internal Medicine; Visit Provider Specialist
DX: Z20.822 Contact with and (suspected) exposure to COVID-19 (principal)
CPT/HCPCS: 87635; C9803

== ENCOUNTER 2020-04-15 06:45 | Day surgery (SDC) | payer OTHER, SELFPAY ==
[2020-03-26 09:37] VITALS: BMI 43.2
[2020-04-15 07:12] VITALS: BP 118/77; PULSE 60; RESP 16; TEMP 36.1; O2SAT 96; BMI 41.1
[2020-04-15] MEDS: LACTATED RINGERS 1,000 ML 200 ML IV (07:23)
--- NOTE | 2020-04-15 07:37 | PM.PREOP ---
Pre-operative Note COVID-19 COVID-19 status: Negative Result date/Date tested (Pos, Neg/Pending): 04/14/20 Interval Note History & Physical reviewed/Exam performed by Physician: Yes Changes to H&P: No ASA Class (for procedural sedation): I
[2020-04-15] MEDS: MIDAZOLAM 5 MG/5 ML VIAL IV (08:14)
[2020-04-15] MEDS: fentaNYL 250 MCG/5 ML INJ IV (08:14)
[2020-04-15 08:24] VITALS: BP 124/69; PULSE 66; RESP 12; TEMP 36.8; O2SAT 98
--- NOTE | 2020-04-15 08:28 | PM.OP.ENDO ---
Operative Date/Time/Diagnoses Date of procedure: 04/15/20 Time of procedure: 08:28 Pre-op diagnosis: Rectal bleeding Post-op diagnosis: same (Internal hemorrhoids near the anal verge) Procedure & Clinicians Study performed: Colonoscopy with anoscopy and single column hemorrhoid banding Same procedure as scheduled: Yes Indications: Evaluate Rectal bleeding Surgeon: González Valenzuela Procedure Notes SCOAP/Timeout: Performed Procedure in detail: The patient was placed in the left lateral decubitus position and underwent IV sedation directed by the surgeon consisting of fentanyl and Versed. Digital exam was remarkable for slightly lax sphincter. I could not feel is prostate well.. The scope was inserted and advanced through the rectum into the sigmoid, descending, transverse, and ascending colon. Pressure was applied and we made our way into the cecum.. The cecum was reached identified by the ileocecal valve and the appendiceal opening. The ileocecal valve was successfully cannulated. The terminal ileum was normal in appearance. The scope was gradually brought out. No Polyps were found. The scope ultimately was retroflexed in the rectum. The appearance was notable for hemorrhoids near the anal verge without ulceration.. The scope was removed and the patient tolerated the procedure well. The prep was excellent. Anoscope was inserted and is circular exam was performed. Patient had hemorrhoidal columns in the expected locations but I attempted to band 1 of them and it seemed that the hemorrhoid was actually right at the area near the anal verge and very disc difficult to grasp and not mobile enough to pull down well through the banding device. Therefore I did not attempt to band and the other hemorrhoids. Scope withdrawal time: 11-1/2 minutes Sedation minutes: 24 Specimen(s): none sent Complications: none Impression: Normal exam except for small internal hemorrhoids Post-procedure Recommendations: Colonscopy in 10 years Follow up: as needed Disposition: PACU
[2020-04-15 08:29] VITALS: BP 114/74; PULSE 65; RESP 12; O2SAT 92
[2020-04-15 08:35] VITALS: BP 105/72; PULSE 55; RESP 12; O2SAT 94
[2020-04-15 08:39] VITALS: BP 110/68; PULSE 55; RESP 12; O2SAT 94
[2020-04-15 08:46] VITALS: BP 106/73; PULSE 57; RESP 12; TEMP 36.9; O2SAT 94
== END 2020-04-15 08:58 | disposition home or self-care (01) ==
PROVIDERS: PCP Internal Medicine; Referring Provider Internal Medicine; Visit Provider Specialist
PROC: 0DJD8ZZ Inspection of Lower Intestinal Tract, Via Natural or Artificial Opening Endoscopic (ICD-10-PCS; CPT 45378; principal; 2020-04-15 07:45)
DX: K62.5 Hemorrhage of anus and rectum (principal); K64.8 Other hemorrhoids
CPT/HCPCS: 45378; 99152; 99153; J2250; J3010

== ENCOUNTER → 2020-11-21 13:17 | Outpatient (CLI) | payer OTHER, SELFPAY ==
[2020-05-07 16:18] VITALS: BMI 43.2
--- NOTE | 2020-11-21 14:02 | DI.RAD.S_ITS ---
PROCEDURE: XR KUB INDICATIONS: L flank pain h/o kidney stone TECHNIQUE: One view of the abdomen acquired. COMPARISON: [facility], CT, CT KIDNEY URETER BLADDER (KUB), 03/22/2020, 12:36. [facility], CR, XR ABDOMEN 1V, 03/24/2020, 22:46. [facility], CR, XR KUB, 03/21/2020, 7:29. FINDINGS: Surgical changes and devices: Right upper quadrant surgical clips. Bowel: Bowel gas pattern is normal. Soft tissues: Possible calcification projects at the level of L3 in the left abdomen. This finding technically nonspecific. Bones: No suspicious bony lesions. IMPRESSION: Poorly defined possible calcification projecting the left abdomen as above raising possibility of urolithiasis ever technically nonspecific. Further assessment with CT KUB could be performed as clinically warranted. Dictated by: Ross Rodriguez M.D. on 11/21/2020 at 15:09 Approved by: Ross Rodriguez M.D. on 11/21/2020 at 15:17
[2020-11-21 14:08] LABS: COVID19 -Nasal RAPID Negative (Negative)
[2020-11-21 14:16] LABS: Add Manual Diff / Slide Review NO; Basophils Absolute Auto 100 /uL (0-100); Basophils Percent Auto 0.9 % (0-2); Eosinophils Absolute Auto 200 /uL (0-450); Eosinophils Percent Auto 2.8 % (2-4); Hemoglobin 16.2 g/dL (13.5-17.5); Lymphocytes Absolute Auto 1900 /uL (1100-4500); Lymphocytes Percent Auto 31.5 % (25-40); Mean Corpuscular HGB Conc 35.2 % (30-36); Mean Corpuscular Hemoglobin 33.6 PG (26-34); Mean Corpuscular Volume 95.3 fL (80-100); Monocytes Absolute Auto 800 /uL (0-900); Monocytes Percent Auto 13.1 % (3-14); Neutrophils Absolute Auto 3100 /uL (1500-7000); Neutrophils Percent Auto 51.7 % (50-75); Platelet Count 184 X10^3/uL (150-400); Red Blood Cell Count 4.83 X10^6/uL (4.5-5.9)
[2020-11-21 14:39] LABS: Alanine Aminotransferase 66 IU/L (<50); Albumin 4.8 g/dL (3.5-5.0); Albumin Globulin Ratio 1.7 (1.0-2.8); Alkaline Phosphatase 80 U/L (38-126); Aspartate Aminotransferase 47 IU/L (17-59); BUN Creatinine Ratio 16.7 (6-22); Bilirubin Total 0.7 mg/dL (0.2-1.3); Blood Urea Nitrogen 16 mg/dL (9-20); Calcium 9.6 mg/dL (8.4-10.2); Carbon Dioxide 30 mmol/L (22-32); Chloride 103 mmol/L (98-107); Estimated Glomerular Filt Rate > 60.0 mL/min (>60); Globulin 2.8 g/dL (1.7-4.1); Glucose 103 mg/dL (70-100); HEMOLYSIS < 15 (0-50); Potassium 4.6 mmol/L (3.4-5.1); Sodium 138 mmol/L (137-145); Total Protein 7.6 g/dL (6.3-8.2)
== END ==
PROVIDERS: PCP Internal Medicine; Referring Provider Nurse Practitioner; Visit Provider Nurse Practitioner
DX: Z20.822 Contact with and (suspected) exposure to COVID-19 (principal); R10.9 Unspecified abdominal pain; N20.0 Calculus of kidney
CPT/HCPCS: 36415; 74018; 80053; 85025; 87086; 87635

== ENCOUNTER → 2020-11-24 13:10 | Outpatient (CLI) | payer OTHER, SELFPAY ==
[2020-05-07 16:18] VITALS: BMI 43.2
--- NOTE | 2020-11-24 13:16 | DI.CT.S_ITS ---
PROCEDURE: CT KIDNEY URETER BLADDER (KUB) INDICATIONS: LEFT FLANK PAIN TECHNIQUE: Axial sections were acquired from the lung bases to the pubic symphysis. Coronal and sagittal reformats were performed. For radiation dose reduction, the following was used: automated exposure control, adjustment of mA and/or kV according to patient size. COMPARISON: [facility], CT, CT KIDNEY URETER BLADDER (KUB), 03/22/2020, 12:36. FINDINGS: Image quality: Excellent. Lung bases: Unremarkable. Heart: No significant findings. URINARY: Right Kidney: No stones or hydronephrosis. Right Ureter: No hydroureter. Left Kidney: 1.2 x 0.5 cm calcification in the left renal pelvis and mild peripelvic inflammation. This may also be two closely apposed stones. No other intrarenal calculi. No left hydronephrosis. There is slight prominence of the renal pelvis. Left Ureter: No hydroureter, ureteral calcifications, or periureteric inflammation Bladder: Decompressed. No calculi. Normal size prostate gland. ABDOMEN: Liver: Moderate hepatic steatosis. No masses. Gallbladder: Surgically absent. Biliary ducts: Nondilated. Pancreas: Unremarkable. Spleen: Unremarkable. Adrenal Glands: No nodules. Stomach and Bowel: Stomach, small bowel loops, and colon are unremarkable. Normal appendix. Peritoneum: No abnormal intraperitoneal fluid. No free air. Ventral Wall: No hernia. Abdominal Nodes: No enlarged retroperitoneal or mesenteric lymph nodes. Vessels: Aorta and inferior vena cava are normal in size. PELVIS: Pelvic Organs: Unremarkable. Pelvic Nodes: Unremarkable. Miscellaneous: No inguinal hernias are seen. Bones: Bilateral L5 pars defects with grade 1 anterolisthesis and severe disc height loss. IMPRESSION: 1. Calcification in the left renal pelvis with surrounding inflammation, likely cause of hematuria. No evidence of obstructive uropathy currently. 2. Moderate hepatic steatosis. 3. L5 spondylolisthesis. Dictated by: Jasmine San M.D. on 11/24/2020 at 15:15 Approved by: Jasmine San M.D. on 11/24/2020 at 15:22
== END ==
PROVIDERS: PCP Internal Medicine; Referring Provider Nurse Practitioner; Visit Provider Nurse Practitioner
DX: R10.9 Unspecified abdominal pain (principal); N28.89 Other specified disorders of kidney and ureter; K76.0 Fatty (change of) liver, not elsewhere classified; M43.16 Spondylolisthesis, lumbar region; Z90.49 Acquired absence of other specified parts of digestive tract
CPT/HCPCS: 74176

== ENCOUNTER → 2020-11-28 08:13 | Outpatient (CLI) | payer OTHER, SELFPAY ==
[2020-05-07 16:18] VITALS: BMI 43.2
[2020-11-28 09:46] LABS: COVID19 -Nasal RAPID Negative (Negative)
== END ==
PROVIDERS: PCP Internal Medicine; Visit Provider Specialist
DX: Z20.822 Contact with and (suspected) exposure to COVID-19 (principal)
CPT/HCPCS: 87635; C9803

== ENCOUNTER 2020-12-01 07:26 | Day surgery (SDC) | payer OTHER, SELFPAY ==
[2020-05-07 16:18] VITALS: BMI 43.2
[2020-11-27 10:44] VITALS: BMI 45.0
[2020-12-01] VITALS (17 sets, daily range): BP systolic 108–139; BP diastolic 58–97; PULSE 48–94; RESP 12–16; TEMP 36.1–36.9; O2SAT 92–99; BMI 45.0
--- NOTE | 2020-12-01 | DI.RAD.S_ITS ---
PROCEDURE: XR ABDOMEN 1V COMPARISON: [facility], CR, XR ABDOMEN 1V, 03/24/2020, 22:46. [facility], CT, CT KIDNEY URETER BLADDER (KUB), 11/24/2020, 13:18. INDICATIONS: surgery FINDINGS: Intraoperative fluoro image demonstrate partial visualization of what is labeled a left ureterovesicular stent. It is coiled overlying the general region of the renal pelvis/proximal ureter IMPRESSION: Intraoperative image as above. Dictated by: Drea Winn M.D. on 12/01/2020 at 11:25 Approved by: Drea Winn M.D. on 12/01/2020 at 11:26
--- NOTE | 2020-12-01 08:42 | PM.PREOP ---
Pre-operative Note Interval Note History & Physical reviewed/Exam performed by Physician: Yes Changes to H&P: No
[2020-12-01] MEDS: LACTATED RINGERS 1,000 ML 42 ML IV (08:47)
[2020-12-01] MEDS: CEFAZOLIN 3 GM IN 0.9 % NACL 100 ML IV (09:20)
--- NOTE | 2020-12-01 09:46 | SUR.OPER ---
Lithotomy on padded OR bed, head on pillow, arms secured on padded arm boards at <90 degrees abduction. Legs secured in padded yellow fins stirrups.
[2020-12-01] MEDS: IOPAMIDOL 15 ML VIAL INJ (09:50)
--- NOTE | 2020-12-01 10:42 | P.OP_ITS ---
Operative Date/Time/Diagnoses Date of procedure: 12/01/20 Time of procedure: 10:42 Pre-op diagnosis: 1. Obstructing 5 x 13 mm left ureteropelvic junction calculus. Post-op diagnosis: same Procedure & Clinicians Procedure: 1. Cystoscopy/left ureteroscopic intrarenal laser lithotripsy. 2. Cystoscopy/placement left ureteral stent (6 [place] by 22-32 cm multi length). Same procedure as scheduled: Yes Indications: 1. Obstructing 5 x 13 mm left ureteropelvic junction calculus Surgeon: Fam Zaidi Click Yes if Unassisted: Yes Anesthesia Type: General Operative Notes Findings: Index calculus located within the left renal pelvis following manipulation and passage of flexible ureteral scope in the left upper tract. Closure Type: not applicable Specimen(s): none sent Applied: other (6 x 22-32 cm multi-length stent) Estimated Blood Loss (mL): 0 Procedure in detail: The patient was positioned in supine and was administered general anesthesia. He was then repositioned semi lithotomy and the lower abdomen, genitalia, and groin were then prepped and draped in sterile fashion. The 22 [place] panendoscope was then passed lower urinary tract with the findings as described above. A 0.35 hybrid guidewire was then advanced through the working port of the cystoscope and into the left collecting system under direct and fluoroscopic guidance. Next, the panendoscope was backloaded off the hybrid guidewire, and a 2nd 0.35 hybrid guidewire was advanced through the accessory port of the dual lumen ureteral access sheath, again under direct and fluoroscopic guidance. The dual lumen ureteral access sheath was then backloaded off both wires. One wire was then secured to the operative drape. The flexible ureteral scope was then prepared and advanced over the other of the wires and advanced proximally under fluoroscopic guidance. This wire was then backloaded out of the ureteral scope. A retrograde pyelogram was then performed to map the left intrarenal collecting system. The stone was identified. The 200 micron laser was then requested. All operating room personnel and patient were then fitted with laser safety eyewear. Laser lithotripsy was then commenced with excellent resultant stone comminution. A 2nd intrarenal pyelogram was performed and each and every calyx were inspected for significant residual stone fragments size. The reader is scope was then withdrawn under direct visualization. This safety guidewire placed previously was then front loaded into the 22 [place] panendoscope in the panendoscope was then advanced into lower tract collecting system. A 6 [place] by 22-32 cm multi-length stent was then selected and advanced over the wire under direct and fluoroscopic guidance. RETRIEVAL LINES WERE LEFT ATTACHED. The bladder was then drained completely and all instrumentation was removed. The patient was then repositioned in supine, was awakened, and was transferred to a [facility] for transportation to PACU. Complications: none Post-operative Condition: stable Disposition: PACU
[2020-12-01] MEDS: FUROSEMIDE 20 MG/2 ML VIAL IV (11:02)
[2020-12-01] MEDS: fentaNYL 100 MCG/2 ML INJ IV ×4 (11:02→11:39)
[2020-12-01] MEDS: HYDROMORPHONE 2 MG INJ IV ×4 (11:07→12:06)
--- NOTE | 2020-12-01 11:31 | SUR.PHASEI ---
1100 Dr Zaidi at bedside, give Lasix IV now and turn patient on right side
[2020-12-01] MEDS: ACETAMINOPHEN 325 MG TABLET 650 MG PO (11:37)
[2020-12-01] MEDS: OXYCODONE IR 5 MG TABLET PO ×2 (11:38→12:18)
--- NOTE | 2020-12-01 12:33 | SUR.PHASEI ---
Pt 6/10 pain does not want any more IV pain meds
--- NOTE | 2020-12-01 14:08 | SUR.PHASEII ---
1350 c/o nausea. Offered to ask for nausea med. No - let's just go. I'lll feel better when I get home
== END 2020-12-01 13:58 | disposition home or self-care (01) ==
PROVIDERS: PCP Internal Medicine; Referring Provider Specialist; Visit Provider Specialist
PROC: 0TF78ZZ Fragmentation in Left Ureter, Via Natural or Artificial Opening Endoscopic (ICD-10-PCS; CPT 52353; principal; 2020-12-01 09:15)
DX: N20.1 Calculus of ureter (principal); E66.01 Morbid (severe) obesity due to excess calories; Z68.42 Body mass index [BMI] 45.0-49.9, adult
CPT/HCPCS: 52356; 74018; 76000; 82962; J0690; J1100; J1170; J1940; J2405; J2704; J3010

== ENCOUNTER → 2021-01-26 16:07 | Outpatient (CLI) | payer OTHER, SELFPAY ==
[2020-12-05 10:31] VITALS: BMI 43.2
--- NOTE | 2021-01-26 16:09 | DI.RAD.S_ITS ---
PROCEDURE: XR KUB INDICATIONS: Kidney stones TECHNIQUE: One view of the abdomen acquired. COMPARISON: [facility], CT, CT KIDNEY URETER BLADDER (KUB), 11/24/2020, 13:18. [facility], CR, XR KUB, 11/21/2020, 14:08. FINDINGS: Surgical changes and devices: None. Bowel: Bowel gas pattern is normal. Soft tissues: No suspicious abdominal calcifications. Previously identified density projecting over the expected region of the left renal pelvis is not identified in the current study. Visualized solid organ contours appear normal in size. Cholecystectomy clips. Bones: No suspicious bony lesions. IMPRESSION: No definite renal stone identified in the current study. Dictated by: Casi Eric MD, PhD on 01/26/2021 at 16:32 Approved by: Casi Eric MD, PhD on 01/26/2021 at 16:38
== END ==
PROVIDERS: PCP Internal Medicine; Referring Provider Specialist; Visit Provider Specialist
DX: N20.0 Calculus of kidney (principal)
CPT/HCPCS: 74018

== ENCOUNTER → 2021-03-03 11:41 | Outpatient (CLI) | payer OTHER, SELFPAY ==
[2020-12-05 10:31] VITALS: BMI 43.2
[2021-03-03 14:18] LABS: Calcium 9.8 mg/dL (8.4-10.2)
[2021-03-04 08:04] LABS: Parathyroid Hormone Int 47 pg/mL (15-65)
== END ==
PROVIDERS: PCP Internal Medicine; Referring Provider Specialist; Visit Provider Specialist
DX: N20.0 Calculus of kidney (principal)
CPT/HCPCS: 36415; 82310; 83970; 84550

== ENCOUNTER → 2022-03-11 15:46 | Outpatient (CLI) | payer OTHER, SELFPAY ==
[2020-12-05 10:31] VITALS: BMI 43.2
[2022-03-11 18:21] LABS: Alanine Aminotransferase 68 IU/L (<50); Albumin 4.6 g/dL (3.5-5.0); Albumin Globulin Ratio 1.5 (1.0-2.8); Alkaline Phosphatase 92 U/L (38-126); Aspartate Aminotransferase 39 IU/L (17-59); BUN Creatinine Ratio 16.7 (6-22); Bilirubin Total 0.8 mg/dL (0.2-1.3); Blood Urea Nitrogen 16 mg/dL (9-20); Calcium 9.3 mg/dL (8.4-10.2); Carbon Dioxide 29 mmol/L (22-32); Chloride 102 mmol/L (98-107); Cholesterol 139 mg/dL (140-199); Estimated Glomerular Filt Rate > 60 mL/min (>60); Glucose 84 mg/dL (70-100); HDL Cholesterol 45 mg/dL (40-60); HEMOLYSIS < 15 (0-50); LDL Cholesterol Calculated 66 mg/dL (<100); Potassium 4.2 mmol/L (3.4-5.1); Sodium 141 mmol/L (137-145); Total Protein 7.6 g/dL (6.3-8.2); Triglycerides 138 mg/dL (35-150); Uric Acid 7.7 mg/dL (3.5-8.5)
[2022-03-11 18:50] LABS: Prostate Specific Antigen Scrn 0.272 ng/mL (0.1-4.0)
== END ==
PROVIDERS: PCP Internal Medicine; Referring Provider Internal Medicine; Visit Provider Internal Medicine
DX: Z12.5 Encounter for screening for malignant neoplasm of prostate (principal); N20.0 Calculus of kidney; Z13.6 Encounter for screening for cardiovascular disorders; Z79.899 Other long term (current) drug therapy; Z80.42 Family history of malignant neoplasm of prostate; Z87.39 Personal history of other diseases of the musculoskeletal system and connective tissue
CPT/HCPCS: 36415; 80053; 80061; 84550; G0103

== ENCOUNTER → 2023-01-18 17:15 | Outpatient (CLI) | payer OTHER, SELFPAY ==
[2020-12-05 10:31] VITALS: BMI 43.2
[2023-01-18 17:56] LABS: Add Manual Diff / Slide Review NO; Basophils Absolute Auto 100 /uL (0-100); Basophils Percent Auto 0.7 % (0-2); Eosinophils Absolute Auto 200 /uL (0-450); Hematocrit 43.3 % (41-53); Hemoglobin 15.4 g/dL (13.5-17.5); Lymphocytes Absolute Auto 2000 /uL (1100-4500); Lymphocytes Percent Auto 26.3 % (25-40); Mean Corpuscular HGB Conc 35.5 % (30-36); Mean Corpuscular Hemoglobin 33.2 PG (26-34); Mean Corpuscular Volume 93.6 fL (80-100); Monocytes Absolute Auto 1000 /uL (0-900); Monocytes Percent Auto 13.5 % (3-14); Neutrophils Absolute Auto 4300 /uL (1500-7000); Neutrophils Percent Auto 56.5 % (50-75); Platelet Count 193 X10^3/uL (150-400); Red Blood Cell Count 4.62 X10^6/uL (4.5-5.9); Red Cell Distribution Width 13.1 % (11.6-14.8); White Blood Cell Count 7.5 X10^3/uL (4.5-11.0)
[2023-01-18 18:09] LABS: Blood Urea Nitrogen 17 mg/dL (9-20); Carbon Dioxide 26 mmol/L (22-32); Chloride 102 mmol/L (98-107); HEMOLYSIS < 15 (0-50); Potassium 3.9 mmol/L (3.4-5.1); Sodium 138 mmol/L (137-145)
[2023-01-18 18:10] LABS: Alanine Aminotransferase 44 IU/L (<50); Albumin 4.4 g/dL (3.5-5.0); Albumin Globulin Ratio 1.5 (1.0-2.8); Alkaline Phosphatase 77 U/L (38-126); Aspartate Aminotransferase 34 IU/L (17-59); Bilirubin Total 0.7 mg/dL (0.2-1.3); C-Reactive Protein Quant 0.8 mg/dL (<1.0); Calcium 9.5 mg/dL (8.4-10.2); Estimated Glomerular Filt Rate > 60 mL/min (>60); Globulin 2.9 g/dL (1.7-4.1); Glucose 65 mg/dL (70-100); Total Protein 7.3 g/dL (6.3-8.2); Uric Acid 4.8 mg/dL (3.5-8.5)
[2023-01-18 18:48] LABS: Erythrocyte Sedimentation Rate 6 MM/HR (0-15)
[2023-01-18 20:16] LABS: Hemoglobin A1C% w Est Avg Glu 5.3 % (4.0-6.0)
[2023-01-18 20:47] LABS: Free T4, Direct Thyroxine 1.01 ng/dL (0.78-2.19)
== END ==
PROVIDERS: PCP Internal Medicine; Referring Provider Internal Medicine; Visit Provider Internal Medicine
DX: E66.01 Morbid (severe) obesity due to excess calories (principal); R73.9 Hyperglycemia, unspecified; R53.83 Other fatigue; Z87.39 Personal history of other diseases of the musculoskeletal system and connective tissue
CPT/HCPCS: 36415; 80053; 83036; 84439; 84443; 84550; 85025; 85651; 86140

== ENCOUNTER → 2023-01-20 13:20 | Outpatient (CLI) | payer OTHER, SELFPAY ==
[2020-12-05 10:31] VITALS: BMI 43.2
[2023-01-20 14:10] LABS: Appearance Urine UA CLEAR; Bilirubin Urine UA NEGATIVE (NEGATIVE); Glucose Urine UA NEGATIVE (Negative); Ketones Urine UA NEGATIVE (NEGATIVE); Leukocyte Esterase Urine UA NEGATIVE (NEGATIVE); Nitrite Urine UA NEGATIVE (Negative); Occult Blood Urine UA NEGATIVE (Negative); Protein Urine UA NEGATIVE (Negative); Urobilinogen Urine UA 0.2 E.U./dL (0.2)
[2023-01-20 14:15] LABS: Color Urine UA Straw
[2023-01-20 14:30] LABS: Bacteria Urine None Seen; Culture Indicated Urine Cult Not Indicated; RBC Urine None Seen (0-5/HPF); Squamous Epithelial Cell Urine None Seen (0-5/HPF); WBC Urine 0-1/HPF (0-5/HPF)
== END ==
PROVIDERS: PCP Internal Medicine; Referring Provider Internal Medicine; Visit Provider Internal Medicine
DX: N39.0 Urinary tract infection, site not specified (principal); R10.9 Unspecified abdominal pain
CPT/HCPCS: 81001

== ENCOUNTER → 2023-03-16 09:38 | Outpatient (CLI) | payer OTHER, SELFPAY ==
[2020-12-05 10:31] VITALS: BMI 43.2
[2023-03-16 11:17] LABS: Alanine Aminotransferase 49 IU/L (<50); Albumin 4.3 g/dL (3.5-5.0); Albumin Globulin Ratio 1.4 (1.0-2.8); Alkaline Phosphatase 82 U/L (38-126); BUN Creatinine Ratio 19.8 (6-22); Bilirubin Total 0.8 mg/dL (0.2-1.3); Blood Urea Nitrogen 18 mg/dL (9-20); Calcium 9.5 mg/dL (8.4-10.2); Carbon Dioxide 28 mmol/L (22-32); Chloride 103 mmol/L (98-107); Cholesterol 137 mg/dL (140-199); Estimated Glomerular Filt Rate > 60 mL/min (>60); Globulin 3.1 g/dL (1.7-4.1); Glucose 93 mg/dL (70-100); HDL Cholesterol 41 mg/dL (40-60); HEMOLYSIS < 15 (0-50); LDL Cholesterol Calculated 68 mg/dL (<100); Potassium 4.1 mmol/L (3.4-5.1); Sodium 137 mmol/L (137-145); Total Protein 7.4 g/dL (6.3-8.2); Triglycerides 138 mg/dL (35-150)
[2023-03-16 11:31] LABS: Free T4, Direct Thyroxine 1.01 ng/dL (0.78-2.19)
[2023-03-16 11:42] LABS: Prostate Specific Antigen Scrn 0.263 ng/mL (0.1-4.0)
[2023-03-16 11:46] LABS: Thyroid Stimulating Hormone 1.87 uIU/mL (0.47-4.68)
[2023-03-18 17:15] LABS: Aspartate Aminotransferase 37 IU/L (17-59)
[2023-03-22 06:39] LABS: Percent Free Testosterone 2.98 % (1.50-4.20); Testosterone Free 7.72 ng/dL (5.00-21.00); Testosterone Total 259.2 ng/dL (264.0-916.0)
== END ==
PROVIDERS: PCP Internal Medicine; Referring Provider Internal Medicine; Visit Provider Internal Medicine
DX: G47.33 Obstructive sleep apnea (adult) (pediatric) (principal); Z87.39 Personal history of other diseases of the musculoskeletal system and connective tissue; Z13.6 Encounter for screening for cardiovascular disorders; E03.9 Hypothyroidism, unspecified; E29.1 Testicular hypofunction; Z12.5 Encounter for screening for malignant neoplasm of prostate; Z13.220 Encounter for screening for lipoid disorders
CPT/HCPCS: 36415; 80053; 80061; 84402; 84403; 84439; 84443; 84550; G0103

== ENCOUNTER → 2023-08-01 07:33 | Outpatient (CLI) | payer OTHER, SELFPAY ==
[2020-12-05 10:31] VITALS: BMI 43.2
[2023-08-01 08:25] LABS: Hematocrit 41.9 % (41-53); Hemoglobin 14.7 g/dL (13.5-17.5)
[2023-08-01 08:46] LABS: HEMOLYSIS 35 (0-50)
[2023-08-01 08:51] LABS: Hemoglobin A1C% w Est Avg Glu 5.1 % (4.0-6.0)
[2023-08-01 08:53] LABS: Alanine Aminotransferase 46 IU/L (<50); Albumin 4.3 g/dL (3.5-5.0); Albumin Globulin Ratio 1.7 (1.0-2.8); Alkaline Phosphatase 78 U/L (38-126); Aspartate Aminotransferase 40 IU/L (17-59); BUN Creatinine Ratio 17.2 (6-22); Bilirubin Total 0.8 mg/dL (0.2-1.3); Blood Urea Nitrogen 15 mg/dL (9-20); Calcium 8.8 mg/dL (8.4-10.2); Carbon Dioxide 29 mmol/L (22-32); Chloride 107 mmol/L (98-107); Estimated Glomerular Filt Rate > 60 mL/min (>60); Globulin 2.5 g/dL (1.7-4.1); Glucose 104 mg/dL (70-100); Potassium 4.1 mmol/L (3.4-5.1); Sodium 141 mmol/L (137-145); Total Protein 6.8 g/dL (6.3-8.2)
[2023-08-01 09:09] LABS: Free T4, Direct Thyroxine 0.96 ng/dL (0.78-2.19)
[2023-08-01 09:23] LABS: Cortisol Random 8.57 ug/dL; Thyroid Stimulating Hormone 1.35 uIU/mL (0.47-4.68)
[2023-08-01 09:40] LABS: Follicle Stimulating Hormone 2.53 mIU/mL; Luteinizing Hormone 2.65 mIU/mL
[2023-08-01 12:12] LABS: Prolactin 5.3 ng/mL (3.7-17.9)
[2023-08-02 07:20] LABS: Sex Hormone Binding Globulin 17.1 nmol/L (19.3-76.4)
== END ==
PROVIDERS: PCP Family Medicine; Referring Provider Internal Medicine Endocrinology, Diabetes & Metabolism; Visit Provider Internal Medicine Endocrinology, Diabetes & Metabolism
DX: R53.82 Chronic fatigue, unspecified (principal); R79.89 Other specified abnormal findings of blood chemistry; E66.01 Morbid (severe) obesity due to excess calories
CPT/HCPCS: 36415; 80053; 82533; 83001; 83002; 83036; 84146; 84270; 84402; 84403; 84439; 84443; 85014; 85018

== ENCOUNTER → 2023-08-09 07:07 | Outpatient (CLI) | payer OTHER, SELFPAY ==
[2020-12-05 10:31] VITALS: BMI 43.2
== END ==
LOC: LAB 07:09
PROVIDERS: PCP Family Medicine; Referring Provider Internal Medicine Endocrinology, Diabetes & Metabolism; Visit Provider Internal Medicine Endocrinology, Diabetes & Metabolism
DX: E66.01 Morbid (severe) obesity due to excess calories (principal)
CPT/HCPCS: 82530

== ENCOUNTER → 2024-02-01 08:03 | Outpatient (CLI) | payer OTHER, SELFPAY ==
[2020-12-05 10:31] VITALS: BMI 43.2
--- NOTE | 2024-02-01 08:07 | DI.RAD.S_ITS ---
PROCEDURE: XR LUMBAR SPINE 6V W BENDING INDICATIONS: BACK PAIN TECHNIQUE: 7 views of the lumbar spine acquired, including flexion and extension views. COMPARISON: None. FINDINGS: Bones: 5 nonrib-bearing vertebrae are present. There is normal bony alignment. No vertebral body compression fractures. No suspicious bony lesions. There is moderate osseous neural foraminal stenosis at L3-L4, L4-L5 and L5-S1 related to endplate degeneration. There is decreased disc height loss at L3-L4 and L4-L5 and moderate facet arthropathy at L5-S1. Soft tissues: Overlying bowel gas pattern is normal. No suspicious soft tissue calcifications. Flexion/extension: There is normal range of motion, with preserved normal alignment. IMPRESSION: 1. Moderate osseous neural foraminal stenosis at L3-L4, L4-L5 and L5-S1. 2. No acute bony abnormality. Dictated by: Murtaza La M.D. on 02/01/2024 at 13:55 Approved by: Murtaza La M.D. on 02/01/2024 at 13:58
== END ==
LOC: RAD 08:05
PROVIDERS: PCP Family Medicine; Referring Provider Family Medicine; Visit Provider Family Medicine
DX: M48.061 Spinal stenosis, lumbar region without neurogenic claudication (principal); M48.07 Spinal stenosis, lumbosacral region; M54.50 Low back pain, unspecified; G89.29 Other chronic pain
CPT/HCPCS: 72114

== ENCOUNTER → 2024-05-22 16:59 | Outpatient (CLI) | payer BC, SELFPAY ==
[2020-12-05 10:31] VITALS: BMI 43.2
--- NOTE | 2024-05-22 17:02 | DI.MRI.S_ITS ---
PROCEDURE: MR LUMBAR SPINE WO CON INDICATIONS: FORAMINAL STENOSIS,PERINEAL NUMBNESS TECHNIQUE: Noncontrast sagittal T1 spin echo and T2 fast echo, sagittal STIR, and T2 fast spin echo through the lumbar spine. In cases with scoliosis, additional coronal T2 fast spin echo may be performed. COMPARISON: [facility], CR, XR LUMBAR SPINE 6V W BENDING, 02/01/2024, 8:08. FINDINGS: Image quality: Excellent. Alignment and Curvature: Grade 1 anterolisthesis of L5 on S1. Straightening of the normal lumbar lordosis. Bone Marrow: Multilevel degenerative endplate changes, most pronounced at L5-S1. Marrow is of normal overall signal. No acute vertebral body compression fractures. Spinal Cord: Conus medullaris terminates at the inferior L1 level. Visualized cord demonstrates normal signal and size. Paraspinous Soft Tissues: No paravertebral masses. T12-L1: Normal appearance. L1-L2: Normal appearance. L2-L3: Disc desiccation and moderate height loss. Diffuse disc bulge. Facet arthropathy. Epidural lipomatosis. Moderate central canal stenosis. Bgin-uo-pbutszst bilateral neural foraminal stenosis. L3-L4: Disc desiccation and mild height loss. Diffuse disc bulge. Facet arthropathy. Epidural lipomatosis. Moderate central canal stenosis. Moderate bilateral neural foraminal stenosis. L4-L5: Disc desiccation. Mild disc bulge. Facet arthropathy. Epidural lipomatosis. Mild central canal stenosis. Moderate bilateral neural foraminal stenosis. L5-S1: Anterolisthesis. Disc desiccation and moderate height loss. Uncovering of the disc with a mild disc bulge. Facet arthropathy. No central canal stenosis. Severe bilateral neural foraminal stenosis. IMPRESSION: 1. Multilevel degenerative changes of the lumbar spine as described above. 2. Moderate central canal stenosis at L2-L3 and L3-L4. 3. Severe bilateral neural foraminal stenosis at L5-S1. Dictated by: Xavier Carrizales M.D. on 05/23/2024 at 8:26 Approved by: Xavier Carrizales M.D. on 05/23/2024 at 8:29
== END ==
LOC: MRI 17:01
PROVIDERS: PCP Family Medicine; Referring Provider Family Medicine; Visit Provider Family Medicine
DX: M48.07 Spinal stenosis, lumbosacral region (principal); M48.061 Spinal stenosis, lumbar region without neurogenic claudication; M47.816 Spondylosis without myelopathy or radiculopathy, lumbar region; M47.817 Spondylosis without myelopathy or radiculopathy, lumbosacral region; M43.17 Spondylolisthesis, lumbosacral region; R20.0 Anesthesia of skin
CPT/HCPCS: 72148

== ENCOUNTER → 2025-02-26 08:23 | Outpatient (CLI) | payer BC, SELFPAY ==
[2020-12-05 10:31] VITALS: BMI 43.2
[2025-02-26 09:26] LABS: Add Manual Diff / Slide Review NO; Hematocrit 48.6 % (41-53); Hemoglobin 17.1 g/dL (13.5-17.5); Lymphocytes Absolute Auto 1100 /uL (1100-4500); Mean Corpuscular HGB Conc 35.1 % (30-36); Mean Corpuscular Hemoglobin 33.3 PG (26-34); Mean Corpuscular Volume 94.8 fL (80-100); Platelet Count 172 X10^3/uL (150-400)
[2025-02-26 10:11] LABS: Follicle Stimulating Hormone < 0.66 mIU/mL
[2025-02-26 10:27] LABS: Estradiol, Total 89.8 pg/mL
== END ==
PROVIDERS: PCP Family Medicine; Referring Provider Student in an Organized Health Care Education/Training Program; Visit Provider Student in an Organized Health Care Education/Training Program
DX: F52.32 Male orgasmic disorder (principal)
CPT/HCPCS: 36415; 82670; 83001; 83002; 84146; 85025